=== PATIENT | female | born 1975 | race African-American/Black ===

== ENCOUNTER 2016-10-03 06:56 | Inpatient (IN) ==
[2016-10-03] MEDS ORDERED: ASPIRIN PO STA (07:03)
[2016-10-03] MEDS ORDERED: XYLOCAINE 2% VISCOUS MT ONE (07:08)
--- NOTE | 2016-10-03 07:33 | Diag Imaging Result Doc PS360 ---
EXAM: CHEST-PORTABLE HISTORY: seizure TECHNIQUE: Portable COMPARISON: 09/11/2016 FINDINGS: Interval development of dense infiltrates in the mid left lung. Heart is not enlarged. A heart valve has been replaced. No pleural effusions identified. IMPRESSION: Left-sided pneumonia. Follow-up PA and lateral recommended. Electronically signed by Yovanny Zimmer 10/03/2016 7:31 AM
[2016-10-03] MEDS ORDERED: VANCOMYCIN 1 GM/NS 1 GM/250 ML IVPB IV ONE (08:27)
[2016-10-03] MEDS ORDERED: ROCEPHIN 1 GM/NS 1 GM/50 ML IVPB IV ONE (08:27)
[2016-10-03 08:36] LABS: MANUAL DIFF NEEDED? NO
[2016-10-03 08:38] LABS: BASO% 0.2 % (0.0-0.8); EOS# 0.02 X1000 (0.0-0.7); EOS% 0.2 % (0.0-10.0); HEMATOCRIT 35.7 % (37.0-47.0); HEMOGLOBIN 11.5 g/dL (12.0-16.0); IMM GRAN# 0.01 X1000 (0.0-0.04); IMM GRAN% 0.1 % (0.0-0.5); LYMPH# 0.67 X1000 (1.2-3.4); LYMPH% 7.2 % (20.5-51.1); MCH 26.9 PG (27-31); MCHC 32.2 g/dL (33-37); MCV 83.4 FL (81-99); MONO% 8.6 % (1.7-9.3); MPV 11.1 FL (7.4-10.4); NEUT% 83.7 % (42.2-75.2); PLT 293 X1000 (130-400); RBC 4.28 XMIL (4.2-5.4)
[2016-10-03 08:50] LABS: INR 0.92 (0.86-1.15); PROTIME 13.1 Seconds (12.1-15.5)
[2016-10-03 08:51] LABS: PTT PL 28.9 Seconds (22.6-43.9)
[2016-10-03 08:53] LABS: AGAP 9; ALBUMIN 3.5 g/dL (3.5-5.0); ALKALINE PHOSPHATASE 119 U/L (32-104); BUN 6 mg/dL (8-22); CALCIUM 8.4 mg/dL (8.8-10.2); CHLORIDE 103 mmol/L (98-107); COSMO 270; GOT 41 U/L (10-30); GPT 34 U/L (10-36); MAGNESIUM 1.8 mg/dL (1.5-2.7); POTASSIUM 3.9 mmol/L (3.5-5.1); SODIUM 136 mmol/L (136-145); TCO2 25 mmol/L (25-35); TOTAL PROTEIN 6.8 g/dL (6.3-8.3)
[2016-10-03 08:59] LABS: UR AMPHETAMINES QUAL NONE DETECTED (NONE DETECT); UR BARBITUATES QUAL PRESUMPTIVE POSITIVE (NONE DETECT); UR BENZODIAZEPIN QUAL NONE DETECTED (NONE DETECT); UR CANNABINOIDS QUAL NONE DETECTED (NONE DETECT); UR COCAINE QUAL NONE DETECTED (NONE DETECT); UR MDMA QUAL NONE DETECTED (NONE DETECT); UR METHADONE QUAL NONE DETECTED (NONE DETECT); UR METHAMPHETAMINE QUAL NONE DETECTED (NONE DETECT); UR OPIATES QUAL NONE DETECTED (NONE DETECT); UR OXYCODONE QUAL NONE DETECTED (NONE DETECT); UR PCP QUAL NONE DETECTED (NONE DETECT); UR TCA QUAL NONE DETECTED (NONE DETECT)
[2016-10-03 09:08] LABS: CK PROFILE 185 U/L (24-173)
--- NOTE | 2016-10-03 09:25 | PROVIDER DOCUMENTATION ---
This chart was entered by Helga Soto Scribe, acting as scribe for Mike Gifford MD. HPI-Neurological Disorder - General Chief Complaint: Seizure Stated Complaint: POST SEIZURE Time Seen by Provider: 10/03/16 07:02 Source: patient Allergies/Adverse Reactions: Patient Allergies Allergy/AdvReac Type Severity Reaction Status Date / Time morphine Allergy RASH Verified 10/03/16 06:59 Home Medications: Home Medication List Medication Instructions Recorded Confirmed Last Taken Type Warfarin [Coumadin] 7.5 mg PO QHS 12/19/14 08/11/16 1 Day Ago History Clonazepam [Klonopin] 1 mg PO BID 08/14/15 08/11/16 04/05/16 History Hydrocodone Bit/Acetaminophen 1 each PO TID 08/14/15 08/11/16 04/05/16 History [Hydrocodon-Acetaminophn 10-325] Loratadine [Claritin] 10 mg PO DAILY #20 capsule 10/07/15 08/11/16 09/13/16 Rx Metoprolol [Lopressor] 25 mg PO DAILY #0 tablet 12/24/15 08/11/16 09/13/16 Rx Phenytoin [Dilantin] 200 mg PO QAM #150 capsule 12/24/15 08/11/16 09/13/16 Rx Phenytoin [Dilantin] 300 mg PO QHS #0 capsule 12/24/15 08/11/16 09/13/16 Rx Aspirin [Aspirin EC] 81 mg PO DAILY 04/05/16 08/11/16 04/05/16 History LISINOpril [Prinivil] 5 mg PO DAILY 04/05/16 08/11/16 04/05/16 History Gabapentin [Neurontin] 300 mg PO BID #60 capsule 07/24/16 08/11/16 Unknown Rx Clonazepam [Klonopin] 1 mg PO BID #30 tablet 08/11/16 Unknown Rx Warfarin [Coumadin] 7.5 mg PO QHS #30 tablet 08/11/16 Unknown Rx Clonazepam [Klonopin] 0.5 mg PO BID #10 tab.rapdis 09/11/16 Unknown Rx Nitrofurantoin Monohyd/M-Cryst 100 mg PO BID #20 capsule 09/11/16 09/13/16 Rx [Macrobid 100 mg Capsule] Cephalexin [Keflex] 500 mg PO 4XDAY #28 capsule 09/13/16 Unknown Rx Amoxicillin/Pot Clavulanate 875 mg PO Q12HR #14 tablet 09/15/16 Unknown Rx [Augmentin] - History of Present Illness-Neuro Nature of Presenting Problem: 41 Y/O F presents to ER by EMS with the complain of having seizure last night. pt state that she has hx of epilepsy and had 2 seizures last night. pt also complain of CARDENAS and mouth pain as she bit her tongue while having seizure. pt denies any other symptoms. Severity: reports: mild Onset/Duration: reports: last night Timing: reports: improving Character of Altered Mental Status: reports: N/A Any recent trauma/injury?: reports: none Cognitive Baseline: alert, oriented x3 Associated Symptoms: reports: headache, other (mouth pain) Review of Systems - Adult - REVIEW OF SYSTEMS - ADULT Constitutional: reports: no symptoms reported Eyes: reports: no symptoms reported Ears, Nose, Mouth & Throat: reports: mouth/dental pain (because of tongue bite) . denies: mouth swelling Cardiovascular: reports: no symptoms reported Respiratory: reports: no symptoms reported Gastrointestinal: reports: no symptoms reported Genitourinary: reports: no symptoms reported Musculoskeletal: reports: no symptoms reported Integumentary: reports: no symptoms reported Neurological: reports: headache/migraines, seizure Psychiatric: reports: no symptoms reported Endocrine: reports: no symptoms reported Hematologic/Lymphatic: reports: no symptoms reported Allergic/Immunologic: reports: no symptoms reported All Other Systems: Reviewed and Negative Past History - Adult - PAST MEDICAL HISTORY-ADULT Review of Records: reports: Old Records Reviewed, Nursing Assessment Review Major Childhood Illnesses: reports: denies history Cardiovascular: reports: blood clots, heart valve problem (both heart valves replaced) Respiratory: reports: asthma, COPD Gastrointestinal: reports: GERD, ulcer Obstetrical/Gynecological: reports: denies history Genitourinary: reports: denies history Musculoskeletal: reports: fibromyalgia Neurological: reports: Seizures/Epilepsy Endocrine/Immune: reports: denies history Other Conditions: reports: denies history - PRIOR SURGERIES/PROCEDURES Surgical/Procedure History: reports: EGD, colonoscopy, cholecystectomy, BTL, tonsillectomy, other (MVP replacement) - IMMUNIZATION STATUS Childhood Immunizations: See Nurse Assessment Flu Vaccine: See Nurse Assessment - FAMILY HISTORY Family History: reviewed, not pertinent - SOCIAL HISTORY Smoking: cigarettes Provider spent 3-5 mins advising pt. on dangers of tobacco.: Discussed manners to quit use, and f/u contacts for add'l counseling. Physical Exam- Neurological - Physical Exam-Neuro Initial Vital Signs Reviewed: Yes General Appearance: appears well, alert, thin Eye Exam: bilateral eye: normal inspection, PERRL, EOMI HENMT: moist mucous membranes, normal ENT inspection, other (mouth pain because of tongue bite) Head Injury: no evidence of injury. negative: active bleeding Neck: non-tender, full range of motion, supple Respiratory: chest non-tender, lungs clear Cardiovascular: tachycardia. negative: no edema Abdominal Exam: normal bowel sounds, non tender, soft Extremity: non-tender, normal inspection patient admitting clerk Exam: normal hearing, normal speech Neurologic: patient admitting clerk II-XII nml as tested, grossly normal, no motor/sensory deficits Integumentary: normal color, normal turgor, warm/dry Psych/Mental Status: normal mood/affect, oriented x 3 Progress - PLAN OF CARE/RESULTS Progress/Plan/Lab Results: Vital Signs - 8 hr 10/03/16 06:57 Temperature 98.4 F Pulse Rate 96 H Respiratory Rate 20 Blood Pressure 109/71 O2 Sat by Pulse Oximetry 95 Laboratory Results - last 24 hr 10/03/16 10/03/16 10/03/16 08:27 08:27 08:27 WBC RBC Hgb Hct MCV MCH MCHC RDW Std Deviation Plt Count MPV Immature Gran % (Auto) Neut % (Auto) Lymph % (Auto) [place] % (Auto) Eos % (Auto) Baso % (Auto) Immature Gran # (Auto) Neut # (Auto) Lymph # (Auto) [place] # (Auto) Eos # (Auto) Baso # (Auto) PT INR APTT (Factor Assay) Sodium 136 Potassium 3.9 Chloride 103 Carbon Dioxide 25 Anion Gap 9 BUN 6 L Creatinine 0.5 Estimated GFR/1.73 m2 > 60 BUN/Creatinine Ratio 12 Glucose 106 H Calculated Osmolality 270 Calcium 8.4 L Magnesium 1.8 Total Bilirubin 0.30 AST 41 H ALT 34 Alkaline Phosphatase 119 H Creatine Kinase 185 H Troponin T < 0.010 Irx-F-[id number] Pept 619 H Total Protein 6.8 Albumin 3.5 Globulin 3.0 Albumin/Globulin Ratio 1.0 Urine Opiates Screen Ur Oxycodone Screen Urine Methadone Screen Ur Barbituates Screen Ur Tricyclics Screen Ur Phencyclidine Scrn Ur Amphetamines Screen U Methamphetamines Scrn Urine MDMA Screen U Benzodiazepines Scrn Urine Cocaine Screen U Cannabinoids Screen 10/03/16 10/03/16 10/03/16 08:27 08:27 08:44 WBC 9.31 RBC 4.28 Hgb 11.5 L Hct 35.7 L MCV 83.4 MCH 26.9 L MCHC 32.2 L RDW Std Deviation 18.4 H Plt Count 293 MPV 11.1 H Immature Gran % (Auto) 0.1 Neut % (Auto) 83.7 H Lymph % (Auto) 7.2 L [place] % (Auto) 8.6 Eos % (Auto) 0.2 Baso % (Auto) 0.2 Immature Gran # (Auto) 0.01 Neut # (Auto) 7.79 H Lymph # (Auto) 0.67 L [place] # (Auto) 0.80 H Eos # (Auto) 0.02 Baso # (Auto) 0.02 PT 13.1 INR 0.92 APTT (Factor Assay) 28.9 Sodium Potassium Chloride Carbon Dioxide Anion Gap BUN Creatinine Estimated GFR/1.73 m2 BUN/Creatinine Ratio Glucose Calculated Osmolality Calcium Magnesium Total Bilirubin AST ALT Alkaline Phosphatase Creatine Kinase Troponin T [id number]-[id number] Pept Total Protein Albumin Globulin Albumin/Globulin Ratio Urine Opiates Screen NONE DETECTED Ur Oxycodone Screen NONE DETECTED Urine Methadone Screen NONE DETECTED Ur Barbituates Screen PRESUMPTIVE POSITIVE A Ur Tricyclics Screen NONE DETECTED Ur Phencyclidine Scrn NONE DETECTED Ur Amphetamines Screen NONE DETECTED U Methamphetamines Scrn NONE DETECTED Urine MDMA Screen NONE DETECTED U Benzodiazepines Scrn NONE DETECTED Urine Cocaine Screen NONE DETECTED U Cannabinoids Screen NONE DETECTED Orders Category Date Time Status Cardiac Monitoring DIRECTED Care 10/03/16 07:03 Active Oxygen Therapy- ED Nursing DIRECTED Care 10/03/16 07:03 Active Saline Loc NOW Care 10/03/16 07:03 Active CHEST-PORTABLE [RAD] Stat Exams 10/03/16 07:04 Completed BLOOD CULTURE [BLDCUL] Stat Lab 10/03/16 08:27 Ordered CBC WITH ELECTRONIC DIFF [HEME] Stat Lab 10/03/16 08:27 Completed CK PROFILE [SP CHEM] Stat Lab 10/03/16 08:27 Results COMPREHENSIVE METABOLIC PANEL [CHEM] Stat Lab 10/03/16 08:27 Results MAGNESIUM [CHEM] Stat Lab 10/03/16 08:27 Results PRO B-NATRIURETIC PEPTIDE Stat Lab 10/03/16 08:27 Completed [address]IME WITH INR PL [COAG] Stat Lab 10/03/16 08:[address] [COAG] Stat Lab 10/03/16 08:27 Completed TROPONIN T Stat Lab 10/03/16 08:27 Completed URINE DRUG SCREEN PL Stat Lab 10/03/16 08:44 Completed Aspirin Med 10/03/16 07:03 Discontinued 325 mg PO STAT STA CefTRIAXONE 1 GM/NS [Rocephin 1 gm/Ns] Med 10/03/16 08:27 Discontinued 1 gm in 50 ml IV NOW Lidocaine 2% Viscous [Xylocaine 2% Viscous] Med 10/03/16 07:08 Discontinued 15 ml MT NOW ONE Vancomycin 1 gm/Ns Med 10/03/16 08:27 Active 1 gm in 250 ml IV NOW EKG [EKG] Stat Ther 10/03/16 07:03 Ordered Result Diagrams: 10/03/16 08:27 10/03/16 08:27 - EKG 1 Time of EKG reading by physician:: 08:45 EKG Read and Signed by:: Mike iGfford EKG Interpretation (*Must complete 3 of following elements*): Abnormal Rate: 88 Rhythm: Normal Sinus Rhythm Comments: Abnormal ECG - XRAY 1 XRAY: Bilateral XRAY Study: Chest Impression: See EMR Report XRAY Interpretation: L side Pneumonia,Followup- PA and lateral recommeded by radiologist - CONSULTS/PCP/HOSPITALIST Notification #1 *Consult/PCP/Hospitalist*: Dr. Lino Time Discussed: 09:16 Reason/Comments: discussed about pt Consult Disposition: Admit Departure - Departure Date of Disposition Decision: 10/03/16 Time of Disposition Decision: 09:24 DIAGNOSIS: Seizure disorder, Pneumonia Disposition: ADMITTED INPATIENT 09 Certified Medical Emergency: Emergent Condition: Stable Referrals and Follow-Ups: Je Matos MD [Primary Care Provider] - - Critical Care Note This patient required my direct & personal management of CC.: Yes Total Time (mins): 20 Critical Care Statement: This patient required my direct personal management to treat or rule out processes, the absence of which, could potentiallly result in sudden, clinically significant life or limb threatening deterioration. Attestation - Physician/ SAFIA Attestation The physician spent face to face time with patient:: Yes Advanced Practice Provider documentation review:: The physician spent face to face time with this patient and agrees with all MLP documentation, treatment, and medical decision making by the MLP. See provider notes for further information. This chart was documented by the indicated scribe, (Helga Soto Scribe) and accurately reflects the services I performed and decisions made by , Mike Gifford MD, as attested by the provider's signature.
[2016-10-03 09:38] LABS: CK INDEX 1.8 (0.0-2.5); CK-MB 3.33 ng/mL (0.0-5.0)
[2016-10-03] MEDS ORDERED: NS 1,000 ML IV SCH (09:40)
[2016-10-03] MEDS ORDERED: TYLENOL PO PRN (09:40)
[2016-10-03] MEDS ORDERED: ZOFRAN IV PRN (09:40)
--- NOTE | 2016-10-03 09:41 | EKG Report ---
Test Performed on : 10/03/2016 08:45:40 AM Test Reason : Chest Pain Blood Pressure : / mmHG Vent. Rate : 088 BPM Atrial Rate : 088 BPM P-R Int : 132 ms QRS Dur : 080 ms QT Int : 366 ms P-R-T Axes : 075 067 072 degrees QTc Int : 442 ms Normal sinus rhythm. Biatrial enlargement Abnormal ECG When compared with ECG of 11-SEP-2016 11:26, No significant change was found Unconfirmed Result
--- NOTE | 2016-10-03 10:42 | HISTORY AND PHYSICAL ---
CHIEF COMPLAINT: Seizure disorder. HISTORY OF PRESENT ILLNESS: A 41-year-old, female with a past medical history of heart failure, mechanical mitral valve replacement in 2014, questionable tricuspid valve repair, severe aortic regurgitation and moderate to severe tricuspid regurgitation, seizure disorder, depression, GERD. Apparently she was admitted also on 09/02/2015 with intentional drug overdose, tobacco abuse, possible COPD, atrial fibrillation, questionable rheumatoid arthritis, peptic ulcer disease and Crohn disease. She came into the emergency department with a chief complaint of seizures. She is completely alert and oriented x3. As per the patient she also has been having cough and diarrhea. Apparently more than more than 1 week ago she started having runny nose and flu-like symptoms. She started coughing 1 week ago with no phlegm, dry cough. Then, she started having diarrhea 3-4 days ago. Although symptoms are getting worse and yesterday night she had a seizure disorder, as well as this morning, this is why they decided to come to the emergency department for evaluation. At the emergency department, she was found to have a left side pneumonia. Because of the seizure disorder and pneumonia and diarrhea, I will place this patient in the ICU for at least 1 day for close monitoring. I will ask for a Dilantin level. I will put this patient on gentle fluids. I will continue most of her home medications. I will ask for blood culture and urine culture. Also, sputum culture if we are able to get some. REVIEW OF SYSTEMS: The 14 points of review of systems were reviewed. All of them were negative, except as per HPI. PAST MEDICAL HISTORY: Severe aortic regurgitation, history of COPD, atrial fibrillation, seizure disorder, rheumatoid arthritis, peptic ulcer disease, Crohn disease, mitral valve replacement, possible tricuspid valve repair, moderate tricuspid regurgitation, heart failure, peptic ulcer disease and Crohn disease. PAST SURGICAL HISTORY: Tubal ligation, mitral valve replacement. FAMILY HISTORY: Several first-degree relatives with heart disease, diabetes and thyroid cancer. SOCIAL HISTORY: No alcohol, no drugs. She denies smoking at this time. LABORATORY: WBC 9.3, hemoglobin 11.5, hematocrit 35.7, platelets 293. Sodium 136, potassium 3.9, chloride 103, bicarbonate 25. BUN 6, creatinine 0.5, glucose 106, calcium 8.4, alkaline phosphatase 119. ProBNP 619. ASSESSMENT AND PLAN: 1. Seizure disorder. Apparently this patient had 2 episodes of seizure disorder, one last night and one today in the morning. She bit her tongue. I will continue with home medication. I will put as-needed medication in case of a new seizure. I will ask for a Dilantin level and I will monitor this patient in the ICU. 2. Pneumonia. I will place this patient on vancomycin and Zosyn. I already asked for sputum culture, urine culture and blood culture for this patient. Also will put this patient on breathing treatment. 3. Diarrhea. I will hydrate this patient with gentle fluids around 50 mL/hour given her history of congestive heart failure. Apparently she has been also on antibiotics before, so I will ask for Clostridium difficile toxin and antigen to rule out Clostridium difficile colitis. 4. Gastroesophageal reflux disease. I will continue with sucralfate and I will put this patient on proton pump inhibitors. 5. Hypertension. Continue with her blood pressure medication. 6. Heart failure. Continue with metoprolol. Will monitor. 7. History of aortic valve regurgitation which is severe. We will continue with metoprolol and lisinopril. We will monitor this closely. 8. History of atrial fibrillation with mitral valve replacement. This patient's INR is subtherapeutic, so I will put this patient on Lovenox twice a day and I will restart this patient's warfarin. Apparently she ran out of warfarin a few days ago. 9. History of peptic ulcer disease. As I mentioned before, I put this patient on proton pump inhibitors and sucralfate. cc: Atilio Urias MD
[2016-10-03] MEDS ORDERED: VANCOMYCIN IV PER PHARMACY MISC SCH (11:34)
[2016-10-03] MEDS ORDERED: ATIVAN IV PRN (11:34)
[2016-10-03] MEDS ORDERED: VANCOMYCIN 800 MG in NS 250 ML IV ONE (12:30)
[2016-10-03 12:36] LABS: URINE SOURCE CLEAN CATCH
[2016-10-03 12:38] LABS: BILIRUBIN URINE NEGATIVE (NEGATIVE); BLOOD URINE 2+ (NEGATIVE); CLARITY CLEAR (CLEAR); COLOR YELLOW; GLUCOSE URINE NEGATIVE (NEGATIVE); LEUKOCYTES URINE NEGATIVE (NEGATIVE); NITRITE URINE NEGATIVE (NEGATIVE); PH URINE 6.5; PROTEIN URINE NEGATIVE (NEGATIVE); URINE MICROSCOPIC NEEDED? YES; UROBILINOGEN URINE NORMAL
[2016-10-03] MEDS ORDERED: NORCO-10 PO SCH (13:00)
[2016-10-03] MEDS: NS 1,000 ML IV SCH (13:03)
[2016-10-03] MEDS: CARAFATE LIQUID PO SCH ×2 (13:03→19:47)
[2016-10-03] MEDS: LOVENOX SUBQ SCH ×2 (13:04→22:00)
[2016-10-03] MEDS: ZOSYN 3.375 GM/NS 3.375 GM/50 ML IVPB IV SCH ×2 (13:05→19:05)
[2016-10-03] MEDS: LOPRESSOR PO SCH (13:06)
[2016-10-03 13:12] LABS: URINE CAST NONE SEEN /LPF; URINE CRYSTAL NONE SEEN /HPF; URINE EPITHELIAL CELLS <10 /HPF (<10); URINE RBC <10 /HPF (<10); URINE WBC <10 /HPF (<10)
[2016-10-03] MEDS: XYLOCAINE 2% VISCOUS MT PRN (19:50)
[2016-10-03] MEDS: NEURONTIN PO SCH (20:29)
[2016-10-03] MEDS: DILANTIN PO SCH (20:30)
[2016-10-03] MEDS: NORCO-10 PO SCH (20:31)
[2016-10-03] MEDS: KLONOPIN PO SCH (20:32)
[2016-10-03] MEDS ORDERED: COUMADIN PO SCH (21:00)
[2016-10-03] MEDS: TESSALON PO PRN (22:30)
[2016-10-03] MEDS ORDERED: VANCOMYCIN 1,350 MG in NS 250 ML IV SCH (23:00)
[2016-10-04] MEDS: ZOSYN 3.375 GM/NS 3.375 GM/50 ML IVPB IV SCH ×5 (00:19→22:56)
[2016-10-04] MEDS: CARAFATE LIQUID PO SCH ×4 (04:14→20:42)
[2016-10-04] MEDS: NS 1,000 ML IV SCH ×2 (05:00→22:57)
[2016-10-04] MEDS: NORCO-10 PO SCH ×3 (05:50→20:42)
[2016-10-04 06:06] LABS: MANUAL DIFF NEEDED? NO
[2016-10-04 06:20] LABS: BASO% 0.7 % (0.0-0.8); EOS# 0.31 X1000 (0.0-0.7); EOS% 5.4 % (0.0-10.0); HEMATOCRIT 30.9 % (37.0-47.0); HEMOGLOBIN 9.4 g/dL (12.0-16.0); LYMPH# 1.34 X1000 (1.2-3.4); LYMPH% 23.1 % (20.5-51.1); MCH 26.1 PG (27-31); MCHC 30.4 g/dL (33-37); MCV 85.8 FL (81-99); MONO# 0.61 X1000 (0.11-0.59); MONO% 10.5 % (1.7-9.3); MPV 11.3 FL (7.4-10.4); NEUT% 60.3 % (42.2-75.2); PLT 261 X1000 (130-400)
[2016-10-04 06:24] LABS: AGAP 10; ALKALINE PHOSPHATASE 100 U/L (32-104); BUN 6 mg/dL (8-22); CALCIUM 7.7 mg/dL (8.8-10.2); CHLORIDE 104 mmol/L (98-107); COSMO 272; GOT 29 U/L (10-30); GPT 24 U/L (10-36); POTASSIUM 3.5 mmol/L (3.5-5.1); SODIUM 138 mmol/L (136-145); TCO2 24 mmol/L (25-35); TOTAL PROTEIN 5.8 g/dL (6.3-8.3)
[2016-10-04] MEDS: NEXIUM PO SCH (06:30)
[2016-10-04 06:36] LABS: INR 1.1 (0.86-1.15); PROTIME 15.1 Seconds (12.1-15.5)
--- NOTE | 2016-10-04 08:07 | Diag Imaging Result Doc PS360 ---
CHEST-PORTABLE - 10/04/2016 INDICATION: Pneumonia TECHNIQUE: COMPARISON: 10/03/2016 FINDINGS: There has been significant improvement, with near resolution, of the hazy left midlung infiltrate. Stable sternotomy wires and valve replacement. Heart size remains top normal. Pulmonary vascularity is normal. No pneumothorax or large effusion. IMPRESSION: Near complete resolution of the left midlung infiltrate. More likely to have represented edema than pneumonia. Electronically signed by Paul Palacio 10/04/2016 8:04 AM
[2016-10-04] MEDS ORDERED: MBX SOLUTION MT PRN (08:30)
[2016-10-04] MEDS: DILANTIN PO SCH ×2 (08:40→20:42)
[2016-10-04] MEDS: NEURONTIN PO SCH ×2 (08:41→20:43)
[2016-10-04] MEDS: PRINIVIL PO SCH (08:41)
[2016-10-04] MEDS: ASPIRIN EC PO SCH (08:41)
[2016-10-04] MEDS: KLONOPIN PO SCH ×2 (08:41→20:44)
--- NOTE | 2016-10-04 08:57 | PROGRESS NOTE ---
DATE: 10/04/2016 SUBJECTIVE: Patient without any new complaints states that she is feeling okay, had a bad night. States she is hurting all over, but this is not uncommon. OBJECTIVE: Vital Signs: Reviewed. Temperature 98 degrees, pulse 88, respiratory rate 18, BP 81/41 and 96/52, satting 96% to 100% on room air. General: Patient is awake, alert, currently in no real respiratory distress. She is somnolent, but arousable. HEENT: Normocephalic, atraumatic. MADELAINE. Neck: Supple. CV: Regular rate. Chest: Clear. Abdomen: Soft. Extremities: Moves all extremities. ASSESSMENT: 1. Seizure disorder. Patient had 2 seizures yesterday. Dilantin level was still pending. If this is low, certainly will need to increase her Dilantin. 2. Pneumonia. We will continue Zosyn. Will actually stop her vancomycin as noted below. 3. Hypotension. Apparently vancomycin in 10% of population can actually lower your blood pressure. The patient was on lisinopril and Toprol at home; we will certainly hold both of these with blood pressures being 80-90 systolic. We will stop her vancomycin as this certainly could be the cause of her hypotension as he her blood pressure was noted to drop very quickly after the staff gave her vancomycin. 4. Hypotension. As noted, we will continue to hold. 5. Anticoagulation. Patient's INR was low. Certainly would suggest that she has not been taking either Coumadin or Dilantin at home. We will continue to follow. 6. Heart failure. Patient has a known history of congestive heart failure. 7. Aortic valve regurgitation, severe. She is on metoprolol and lisinopril, but will hold this. 8. Atrial fibrillation. We will continue Lovenox until her INR is greater than 2. PLAN: Currently we will leave her in the ICU until her blood pressures have improved. We will attempt to hold [place] and Klonopin, as well, until her blood pressures improve. We will stop her vancomycin presently. Continue Zosyn. Further orders as needed. cc: Hamzah Santiago MD
[2016-10-04] MEDS: LOVENOX SUBQ SCH ×2 (10:52→22:56)
[2016-10-04] MEDS: COUMADIN PO SCH (20:44)
[2016-10-04] MEDS: TESSALON PO PRN (22:56)
[2016-10-05] MEDS: CARAFATE LIQUID PO SCH ×4 (02:28→19:58)
[2016-10-05] MEDS: NS 1,000 ML IV SCH (03:25)
[2016-10-05] MEDS: ZOSYN 3.375 GM/NS 3.375 GM/50 ML IVPB IV SCH (05:22)
[2016-10-05] MEDS: NORCO-10 PO SCH ×3 (05:22→19:59)
[2016-10-05] MEDS: NEXIUM PO SCH (06:59)
[2016-10-05] MEDS: ASPIRIN EC PO SCH (09:46)
[2016-10-05] MEDS: PRINIVIL PO SCH (09:47)
[2016-10-05] MEDS: KLONOPIN PO SCH ×2 (09:47→20:02)
[2016-10-05] MEDS: DILANTIN PO SCH ×2 (09:47→20:02)
[2016-10-05] MEDS: LOPRESSOR PO SCH (09:47)
[2016-10-05] MEDS: AUGMENTIN PO SCH ×2 (09:47→20:02)
[2016-10-05] MEDS: NEURONTIN PO SCH ×2 (09:47→19:59)
[2016-10-05] MEDS: LOVENOX SUBQ SCH ×2 (09:48→21:07)
[2016-10-05] MEDS ORDERED: ATIVAN PO PRN (18:47)
[2016-10-05] MEDS ORDERED: ZOFRAN ODT PO PRN (18:47)
[2016-10-05] MEDS: COUMADIN PO SCH (19:59)
[2016-10-05] MEDS: XYLOCAINE 2% VISCOUS MT PRN (20:10)
[2016-10-06] MEDS: CARAFATE LIQUID PO SCH ×4 (02:49→20:07)
[2016-10-06] MEDS: NORCO-10 PO SCH ×3 (06:15→20:09)
[2016-10-06] MEDS: NEXIUM PO SCH (06:19)
[2016-10-06 07:01] LABS: INR 1.95 (0.86-1.15); PROTIME 23.8 Seconds (12.1-15.5)
[2016-10-06] MEDS: LOPRESSOR PO SCH (09:11)
[2016-10-06] MEDS: KLONOPIN PO SCH ×2 (09:11→20:08)
[2016-10-06] MEDS: LOVENOX SUBQ SCH ×2 (09:11→21:08)
[2016-10-06] MEDS: NEURONTIN PO SCH ×2 (09:11→20:08)
[2016-10-06] MEDS: PRINIVIL PO SCH (09:11)
[2016-10-06] MEDS: ASPIRIN EC PO SCH (09:11)
[2016-10-06] MEDS: DILANTIN PO SCH ×2 (09:11→20:07)
[2016-10-06] MEDS: AUGMENTIN PO SCH ×2 (09:12→20:09)
--- NOTE | 2016-10-06 11:55 | PROGRESS NOTE ---
DATE: 10/06/2016 SUBJECTIVE: Today Ms. Romero refers to be doing fine. Denies any acute medical complaints. Denies wanting to hurt herself this morning. OBJECTIVE: Vital signs: Blood pressure is 112/63, pulse of 87, respiration is 18, and temperature 98.4 degrees. General: Ms. Romero is a 41-year-old female. She is in bed. Does not seem to be in any distress. HEENT: Mucosa is pink and moist. Anicteric. Acyanotic. The patient has very hyperplastic and hyperpigmented gums due to Dilantin side effects. Chest: Clear. No crepitations. No rhonchi. Cardiovascular: Regular rate and rhythm. There is a mechanical click consistent with a mechanical valve. Abdomen: Soft, nontender. Extremities: No pedal edema. Skin: On the chest wall the patient has a midline sternotomy scar consistent with previous heart surgeries. 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 There is no focal neurological deficit. LABORATORY DATA: None for today. ASSESSMENT: 1. Seizure disorder. Patient seems to have breakthrough seizures. According to her, she normally has at least 1 breakthrough seizure every month. She normally sees Dr. Santana. The patient's Dilantin levels are low. However, she refers to be consistent with her medication which is kind of doubtful. Either she is not taking them or it is being induced in its metabolism due to other medication. We will, however, defer this to her neurologist to make changes accordingly. The patient has not had any seizures today. 2. Remarkable history of valvulopathy (mitral valve replaced with mechanical valves, aortic valve replaced with mechanical valve, tricuspid valve repair; all presumably due to rheumatic heart disease). 3. Coumadin anticoagulation patient is subtherapeutic. Is currently on home dose of Coumadin and being bridged with Lovenox. According to her, she stopped taking Coumadin about a month ago because she just got tired. 4. History of atrial fibrillation. Currently rate controlled. 5. Suspected pneumonia. Patient is currently on antibiotics. 6. History of tobacco abuse. Patient has been counseled. 7. Suicidal ideation. This patient has been evaluated by psych and we are pending inpatient psych placement. cc: Burton Her MD
--- NOTE | 2016-10-06 13:26 | PROGRESS NOTE ---
DATE: 10/05/2016 SUBJECTIVE: The patient initially stated that she wanted to go home. States that she was feeling better. Therefore, we were attempting to get Lovenox at home. However, later on in the day she told the nurse that she had plenty of Lovenox and Coumadin at home, but stated that she was not going to take it. Stated that if she went home, that she would attempt to hurt herself and would hopefully be successful. OBJECTIVE: Vital Signs: Reviewed and stable. She is awake, alert, oriented. She is in no respiratory distress. Neck: Supple. CV: Regular rate. Chest: Relatively clear. Abdomen: Soft. Extremities: Moves all extremities. ASSESSMENT: 1. Seizure disorder. We will continue Dilantin. 2. Pneumonia. Continue antibiotics. 3. Hypotension, resolved. 4. Anticoagulation. Patient's INR remains low. We will continue Lovenox and Coumadin. 5. Suicidal ideations. Patient will consult with Cathy Reynolds. We will move her back to the intensive care unit secondary to suicidal ideations. 6. Aortic valve regurgitation. 7. Atrial fibrillation. PLAN: We will consult Plumaserlinda Covarrubias [place]. We will move her back to ICU. We will continue to follow. Further orders as needed. cc: Hamzah Santiago MD
[2016-10-06] MEDS: TESSALON PO PRN (16:25)
[2016-10-06] MEDS: COUMADIN PO SCH (20:09)
[2016-10-07] MEDS: CARAFATE LIQUID PO SCH ×3 (02:08→13:29)
[2016-10-07] MEDS: NORCO-10 PO SCH ×2 (06:11→12:37)
[2016-10-07] MEDS: NEXIUM PO SCH (06:15)
[2016-10-07] MEDS: LOPRESSOR PO SCH (09:12)
[2016-10-07] MEDS: LOVENOX SUBQ SCH (09:12)
[2016-10-07] MEDS: PRINIVIL PO SCH (09:12)
[2016-10-07] MEDS: NEURONTIN PO SCH (09:12)
[2016-10-07] MEDS: DILANTIN PO SCH (09:12)
[2016-10-07] MEDS: AUGMENTIN PO SCH (09:12)
[2016-10-07] MEDS: KLONOPIN PO SCH (09:12)
[2016-10-07] MEDS: ASPIRIN EC PO SCH (09:13)
[2016-10-07] MEDS ORDERED: NICODERM PATCH ONE (12:05)
[2016-10-07] MEDS ORDERED: REMERON PO SCH (12:15)
[2016-10-07] MEDS ORDERED: DIFLUCAN PO SCH (12:45)
[2016-10-07] MEDS ORDERED: NICODERM PATCH TD SCH (12:45)
[2016-10-07 13:50] VITALS: BP 153/82
--- NOTE | 2016-10-07 15:28 | PROGRESS NOTE ---
DATE: 10/07/2016 SUBJECTIVE: Today Ms. 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 She is thinking about her kids. She has not been eating very well. She also complained of some vaginal itching. OBJECTIVE: Vital signs: Blood pressure is 112/68, pulse of 62, respirations 23, temperature is 97.8 degrees. The patient is saturating 98% on room air. General: Ms. Romero is a 41-year-old, female. She was sitting up in the bed. Was not in any distress, but was just tearful. HEENT: Mucosa is pink and moist. Anicteric. Acyanotic. Neck: Supple. Chest: Good air entry bilateral. Cardiovascular: Regular rate and rhythm. There is a systolic click consistent with a history of a mechanical valve. Abdomen: Soft, nontender. Extremities: No pedal edema. [employer]: Patient is awake and alert. There is no focal neurological deficit. Chest wall: Patient has a midline sternotomy scar consistent with previous heart surgeries. LABORATORY: No laboratory work for today. ASSESSMENT: 1. Seizure disorder with frequent breakthrough seizures. Patient has not had any seizures here. She normally follows up with Dr. Santana. The patient has been started on her home medications and will follow up with Dr. Santana. 2. Remarkable history of valvulopathy (mechanical mitral valve replaced, aortic mechanical valve replaced and tricuspid valve repair) all secondary to rheumatic heart disease. 3. Coumadin anticoagulation. Patient continues to be subtherapeutic; however, INR is improving, today is 1.95. Hopefully tomorrow it is in the therapeutic range and we can discontinue the Lovenox. 4. History of atrial fibrillation, currently rate controlled. 5. Suspected pneumonia. The patient is on oral antibiotics now. 6. History of tobacco abuse. Patient has been counseled. 7. Suicidal ideation. Patient continues to express even after this morning that she would hurt herself. This patient has been evaluated by Cathy Reynolds and they recommend an inpatient psychiatric bed. We are still pending bed availability in any of the psychiatric facilities. 8. Severe depression. Patient continues to be very tearful, not eating, and refers she does not have any hopes in life. We are going to start her on Lexapro and mirtazapine and hopefully this will help over the course of the day with her symptoms and her mood. 9. Suspected candidal vaginitis. PLAN: 1. So in general Ms. Romero is relatively stable. However, today she was more tearful than day before. We will start her on Lexapro and mirtazapine and we will also start her on a 3-day course of Diflucan for presumed [place] vaginitis. 2. We are still waiting on an inpatient psychiatric bed for patient to be transferred. 3. Patient after this morning continues to express suicidal ideations. cc: Burton Her MD
--- NOTE | 2016-10-07 15:30 | DISCHARGE SUMMARY ---
ADMISSION DATE: 10/03/2016 DISCHARGE DATE: 10/07/2016 DISPOSITION: [facility] ADMITTING DIAGNOSES: 1. Seizure disorder. 2. Pneumonia. 3. Diarrhea. 4. Gastroesophageal reflux disease. DISCHARGE DIAGNOSES: 1. Seizure disorder with frequent breakthrough episodes. 2. Remarkable history of valvulopathy (mechanical mitral valve replaced, mechanical aortic valve replaced, tricuspid valve repair, all presumably due to rheumatic heart disease). 3. Coumadin anticoagulation. 4. History of atrial fibrillation. 5. Suspected pneumonia. 6. Tobacco abuse. 7. Suicidal ideation. 8. Significant evidence of depression. MEDICATIONS: At the time of transfer, the patient was on: 1. Tylenol. 2. Augmentin 500 b.i.d. 3. Aspirin 81 mg daily. 4. Klonopin 1 mg daily. 5. Lovenox 60 subcutaneously q.12. 6. Lexapro 20 mg nightly at bedtime. 7. Nexium. 8. Diflucan 100 mg daily. 9. Gabapentin 300 b.i.d. 10.Lisinopril 5 mg daily. 11.Metoprolol 50 mg daily. 12.Mirtazapine 15 mg nightly at bedtime. 13.Nicotine patch. 14.Phenytoin 200 mg in the morning and 300 mg at night. 15.Coumadin 15 mg daily. PRESENTING COMPLAINT: Seizures. HISTORY OF PRESENT ILLNESS: Ms. Romero is a 41-year-old female with extensive history of valvulopathy, heart failure, multiple valvular surgeries, who presented to the emergency department because of seizure episode. The patient was admitted for further medical evaluation. HOSPITAL COURSE: The patient was admitted to the ICU, was started on IV Dilantin. Dilantin level was low. From the history, it appeared Ms. Romero was not very compliant with her medications. During the hospital stay, the patient did express very active suicidal ideation, so Cathy Reynolds was consulted, and the decision was made to admit the patient to an inpatient psychiatric green. Referrals were sent all over today. [facility] called and said they have a bed. The patient will therefore be transferred there for further medical care. At the time of discharge, there are no pending labs or imaging studies. Time spent for discharge was 38 minutes. cc: Burton Her MD
[2016-10-07] MEDS ORDERED: LEXAPRO PO SCH (21:00)
[2016-10-08] MEDS ORDERED: MIRALAX PO SCH (09:00)
== END 2016-10-07 14:34 ==
LOC: P.ED 06:56 → SUATTDRO 09:55 → P.ICU 09:55 → P.MEDSURG 10-04 18:40 → P.ICU 10-05 15:45
PROVIDERS: ATTEND Internal Medicine

== ENCOUNTER 2018-03-16 05:07 | Inpatient (IN) ==
[2018-03-16] MEDS ORDERED: PROTONIX IV ONE (05:28)
[2018-03-16] MEDS ORDERED: SODIUM CHLORIDE 0.9% INJ ONE ×2 (05:28→11:32)
[2018-03-16] MEDS ORDERED: ZOFRAN IV ONE (05:36)
--- NOTE | 2018-03-16 05:36 | PROVIDER DOCUMENTATION ---
HPI-General Adult - General Chief Complaint: Vomiting Blood Stated Complaint: VOMITING Time Seen by Provider: 03/16/18 05:27 Source: patient, family Allergies/Adverse Reactions: Patient Allergies Allergy/AdvReac Type Severity Reaction Status Date / Time morphine Allergy RASH Verified 01/11/18 08:55 Home Medications: Home Medication List Medication Instructions Recorded Confirmed Last Taken Type Clonazepam [Klonopin] 1 mg PO BID #30 tablet 08/11/16 03/16/18 03/15/18 21:00 Rx Hydrocodone Bit/Acetaminophen 1 each PO TID #30 tablet 10/05/16 03/16/18 21:00 Rx [Hydrocodon-Acetaminophn 10-325] Metoprolol [Lopressor] 25 mg PO DAILY #30 tablet 10/05/16 03/16/18 03/15/18 09: 00 Rx Phenytoin [Dilantin] 200 mg PO QAM #30 capsule 10/05/16 03/16/18 03/15/18 Rx Phenytoin [Dilantin] 300 mg PO QHS #30 capsule 10/05/16 03/16/18 03/15/18 Rx Warfarin [Coumadin] 7.5 mg PO QHS 03/16/18 03/16/18 03/15/18 09:00 History - History of Present Illness -Gen Adult Nature of Presenting Problems: Patient is a 42 year old black female with history of mechanical mitral valve replacement requiring daily coumadin,COPD,fibromyalgia, seizure disorder, and atrial fibrillation who presents complaining of intermittent coffee ground emesis and rectal bleeding since yesterday. Upon arrival, rectal exam revealed hemoccult brown stools and no sign of bleeding. Review of Systems - Adult - REVIEW OF SYSTEMS - ADULT Constitutional: denies: chills, fever Eyes: reports: no symptoms reported Ears, Nose, Mouth & Throat: reports: no symptoms reported Cardiovascular: denies: chest pain Respiratory: denies: shortness of breath Gastrointestinal: reports: abdominal pain, diarrhea, nausea, vomiting Genitourinary: denies: dysuria Musculoskeletal: reports: no symptoms reported Integumentary: reports: no symptoms reported Neurological: reports: no symptoms reported Psychiatric: reports: anxiety Endocrine: reports: no symptoms reported Hematologic/Lymphatic: reports: no symptoms reported Allergic/Immunologic: reports: no symptoms reported All Other Systems: Reviewed and Negative Past History - Adult - PAST MEDICAL HISTORY-ADULT Review of Records: reports: Old Records Reviewed, Nursing Assessment Review, Medications Reviewed, Social history reviewed & non-contributory. Major Childhood Illnesses: reports: denies history Cardiovascular: reports: A-Fib, blood clots, CHF, HTN, heart valve problem ( both heart valves replaced) Respiratory: reports: asthma, COPD Gastrointestinal: reports: GERD, ulcer Obstetrical/Gynecological: reports: denies history Genitourinary: reports: denies history Musculoskeletal: reports: fibromyalgia Neurological: reports: Seizures/Epilepsy Psychiatric: reports: denies history Endocrine/Immune: reports: denies history Other Conditions: reports: denies history - PRIOR SURGERIES/PROCEDURES Surgical/Procedure History: reports: EGD, colonoscopy, cholecystectomy, BTL, tonsillectomy, other (MVP replacement) - IMMUNIZATION STATUS Childhood Immunizations: See Nurse Assessment Flu Vaccine: See Nurse Assessment - FAMILY HISTORY Family History: reviewed, not pertinent Physical Exam-General - PHYSICAL EXAM-ADULT Initial Vital Signs Reviewed: Yes - CONSTITUTIONAL General Appearance: alert, no apparent distress - EYES Eyes: other (clear) - HEAD, EARS, NOSE, MOUTH & THROAT HENMT: moist mucous membranes, normal ENT inspection - NECK Neck: non-tender, full range of motion, supple - RESPIRATORY Respiratory: lungs clear - CARDIOVASCULAR Cardiovascular: regular rate, rhythm - GASTROINTESTINAL (ABDOMEN) Abdominal Exam: no organomegaly, no pulsatile mass, distended, tenderness ( diffuse). negative: guarding, rebound - LYMPHATIC Lymphatic: no adenopathy - MUSCULOSKELETAL Back Exam: normal inspection, no CVA tenderness Extremity: normal range of motion, non-tender Peripheral Pulses: radial (R): 2+, radial (L): 2+ - SKIN Integumentary: normal color, normal turgor - NEUROLOGIC Neurologic: other (nonfocal) - PSYCHIATRIC Psych/Mental Status: anxious Progress - PLAN OF CARE/RESULTS Progress/Plan/Lab Results: Vital Signs - 8 hr 03/16/18 05:18 Temperature 97.5 F L Pulse Rate 101 H Respiratory Rate 18 Blood Pressure 118/88 O2 Sat by Pulse Oximetry 96 Orders Category Date Time Status Misc. [facility] Communication Order DIRECTED Care 03/16/18 05:27 Ordered CBC WITH ELECTRONIC DIFF [HEME] Stat Lab 03/16/18 05:28 Ordered CMP [COMPREHENSIVE METABOLIC PANEL] [CHEM] Stat Lab 03/16/18 05:29 Uncollected PT [PROTIME WITH INR] [COAG] Stat Lab 03/16/18 05:27 Uncollected TYPE & SCREEN [BBK] Stat Lab 03/16/18 05:28 Uncollected Pantoprazole [Protonix] Med 03/16/18 05:28 Once 40 mg IV NOW ONE Sodium Chloride 0.9% Med 03/16/18 05:28 Once 10 ml INJ NOW ONE EKG [EKG] Stat Ther 03/16/18 05:28 Ordered Result Diagrams: 03/16/18 05:40 03/16/18 05:40 - CHANGE OF SHIFT REPORT (ED Provider) Report Given and Care Transferred to:: Dr. Quezada Time of Transfer: 07:30 Items Pending: CT/MRI Results, Physician Consult/Arrival Departure - Departure Date of Disposition Decision: 03/16/18 Time of Disposition Decision: 10:25 DIAGNOSIS: Congestive rheumatic heart failure Dilantin toxicity Qualifiers: Encounter type: initial encounter Injury intent: accidental or unintentional Qualified Code(s): T42.0X1A - Poisoning by hydantoin derivatives, accidental ( unintentional), initial encounter Nausea and vomiting Qualifiers: Vomiting type: unspecified Vomiting Intractability: non-intractable Qualified Code(s): R11.2 - Nausea with vomiting, unspecified Disposition: ADMITTED INPATIENT 09 Certified Medical Emergency: Emergent Condition: Stable - Critical Care Note This patient required my direct & personal management of CC.: No Attestation - Physician/ SAFIA Attestation Patient care was provided by Advanced Practice Provider:: No The physician spent face to face time with patient:: Yes Advanced Practice Provider documentation review:: Supervising physician onsite and consulted in the evaluation and care of this patient. The physician did have a face to face encounter with the patient.
[2018-03-16] MEDS ORDERED: DILAUDID IV ONE (05:49)
[2018-03-16 05:50] LABS: BASO# 0.05 X1000 (0.0-0.2); BASO% 0.7 % (0.0-0.8); EOS# 0.21 X1000 (0.0-0.7); EOS% 2.9 % (0.0-10.0); HEMATOCRIT 41.1 % (37.0-47.0); HEMOGLOBIN 13.3 g/dL (12.0-16.0); IMM GRAN# 0.02 X1000 (0.0-0.04); IMM GRAN% 0.3 % (0.0-0.5); LYMPH# 1.46 X1000 (1.2-3.4); LYMPH% 20.4 % (20.5-51.1); MCH 28.1 PG (27-31); MCHC 32.4 g/dL (33-37); MCV 86.9 FL (81-99); MONO# 1.24 X1000 (0.11-0.59); MONO% 17.3 % (1.7-9.3); MPV 10.4 FL (7.4-10.4); NEUT# 4.17 X1000 (1.4-6.5); NEUT% 58.4 % (42.2-75.2); PLT 428 X1000 (130-400); RBC 4.73 XMIL (4.2-5.4); WBC 7.15 X1000 (4.8-10.8)
[2018-03-16 06:09] LABS: OCCULT BLOOD 1 NEGATIVE (NEGATIVE)
[2018-03-16 06:37] LABS: AGAP 11; ALBUMIN 3.6 g/dL (3.5-5.0); ALKALINE PHOSPHATASE 118 U/L (32-104); BUN 10 mg/dL (8-22); CALCIUM 8.7 mg/dL (8.8-10.2); CHLORIDE 99 mmol/L (98-107); COSMO 273; CREATININE 0.7 mg/dL (0.5-0.9); ESTIMATED GFR > 60; GLUCOSE 106 mg/dL (70-104); GOT 21 U/L (10-30); GPT 11 U/L (10-36); POTASSIUM 4.3 mmol/L (3.5-5.1); SODIUM 137 mmol/L (136-145); TCO2 26 mmol/L (25-35); TOTAL PROTEIN 7.9 g/dL (6.3-8.3)
[2018-03-16 06:48] LABS: UR AMPHETAMINES QUAL NONE DETECTED (NONE DETECT); UR BARBITUATES QUAL PRESUMPTIVE POSITIVE (NONE DETECT); UR BENZODIAZEPIN QUAL PRESUMPTIVE POSITIVE (NONE DETECT); UR CANNABINOIDS QUAL NONE DETECTED (NONE DETECT); UR COCAINE QUAL NONE DETECTED (NONE DETECT); UR METHADONE QUAL NONE DETECTED (NONE DETECT); UR METHAMPHETAMINE QUAL NONE DETECTED (NONE DETECT); UR OPIATES QUAL NONE DETECTED (NONE DETECT); UR OXYCODONE QUAL NONE DETECTED (NONE DETECT); UR PCP QUAL NONE DETECTED (NONE DETECT); UR PROPOXYPHENE QUAL NONE DETECTED (NONE DETECT); UR TCA QUAL NONE DETECTED (NONE DETECT)
[2018-03-16 06:55] LABS: INR 5.8; PROTIME 54.7 Seconds (11.0-16.0)
--- NOTE | 2018-03-16 07:11 | Diag Imaging Result Doc PS360 ---
FLAT/UPRIGHT ABD/1 VIEW CHEST - 03/16/2018 INDICATION: GI bleeding TECHNIQUE: COMPARISON: 11/06/2017 FINDINGS: Stable surgical changes to the heart and valve replacement. Heart size and pulmonary vascularity is normal. No infiltrates or edema. There is a nonobstructive bowel gas pattern. No free air or abnormal calcifications. IMPRESSION: Negative exam. Electronically signed by Paul Palacio 03/16/2018 7:09 AM
--- NOTE | 2018-03-16 08:11 | Diag Imaging Result Doc PS360 ---
CT ABD/PELVIS W/IV CONT ONLY - 03/16/2018 INDICATION: abdominal pain, n/v COMPARISON: 10/28/2017 FINDINGS: The lung bases are clear and the heart size is normal. Stable hemangioma in the liver dome. Otherwise all abdominal organs are normal. No bowel obstruction or inflammation. No free air or free fluid. Stable heterogeneously enhancing nodules throughout the myometrium, nonspecific but most likely representing uterine fibroids. Urinary bladder and rectum are normal. Bones are intact. IMPRESSION: No acute disease. This exam was performed using automated exposure control, adjustment of mA or kV according to patient size, and/or use of iterative reconstruction technique Electronically signed by Paul Palacio 03/16/2018 8:08 AM
--- NOTE | 2018-03-16 09:05 | EKG Report ---
Test Performed on : 03/16/2018 06:49:13 AM Test Reason : pain Blood Pressure : / mmHG Vent. Rate : 089 BPM Atrial Rate : 089 BPM P-R Int : 126 ms QRS Dur : 076 ms QT Int : 372 ms P-R-T Axes : 079 076 066 degrees QTc Int : 452 ms Normal sinus rhythm. Right atrial enlargement Borderline ECG When compared with ECG of 27-FEB-2018 10:15, (Unconfirmed) No significant change was found Unconfirmed Result
[2018-03-16] MEDS: PROTONIX IV SCH (12:28)
--- NOTE | 2018-03-16 12:29 | Diag Imaging Result Doc PS360 ---
CT HEAD W/O CONTRAST - 03/16/2018 INDICATION: head injury, elevated inr COMPARISON: 02/27/2018 FINDINGS: The ventricles and sulci are normal in size and contour. No intracranial mass or hemorrhage. No skull fracture. There is stable chronic left maxillary sinusitis. IMPRESSION: Sinusitis. No acute injury. This exam was performed using automated exposure control, adjustment of mA or kV according to patient size, and/or use of iterative reconstruction technique Electronically signed by Paul Palacio 03/16/2018 12:27 PM
[2018-03-16] MEDS: NORCO-10 PO PRN ×2 (14:52→21:09)
--- NOTE | 2018-03-16 15:56 | HISTORY AND PHYSICAL ---
CONTINUATION: Her CT of the abdomen and pelvis revealed no acute disease. Abdominal x-ray revealed a negative exam. ASSESSMENT AND PLAN: 1. Coffee-ground emesis. 2. Hypercoagulable state secondary to warfarin. 3. Elevated Dilantin level. 4. History of aortic valve replacement, mitral valve replacement and tricuspid repair in 2015. 5. Chronic anticoagulation. 6. Seizure disorder. 7. Heart failure. 8. History of gastric ulcer. 9. History of Crohn disease. 10. History of atrial fibrillation. PLAN: The patient will be admitted to the medical/surgical floor. She will be placed on telemetry. We will identify her home medications and continue as appropriate although we will hold warfarin and Dilantin. We will get daily levels and restart when appropriate. We will trend CBCs. We will occult any vomitus or stools. Will start Carafate as she has had a history of ulcers and she is hypercoagulable. She does have bruising noted under her eyes. She has hit her head recently while having a seizure and in the setting of this high INR will get a CT of the head. Further treatments pending hospital course. Dictated by TOPHER Gilliam for Hamzah Santiago MD This chart was documented by, TOPHER Gilliam and accurately reflects the services performed, treatment plan and medical decisions as attested by the providers signature Hamzah Santiago MD. cc: TOPHER Gilliam MD
--- NOTE | 2018-03-16 16:04 | HISTORY AND PHYSICAL ---
CHIEF COMPLAINT: Coffee ground emesis. HISTORY OF PRESENT ILLNESS: This is a 42-year-old female with a history of rheumatic fever, status post mitral valve and aortic valve replacement, as well as tricuspid repair in 2015, history of atrial fibrillation, peptic ulcers and Crohn's. She presents to the emergency room complaining of coffee ground emesis over a few days. She also states that she had some diarrhea with black stools. She did state that she has been taking Pepto-Bismol over the last week. Ms. Romero does carry a diagnosis for Crohn disease and she states she has had no recent flare. She does report having a seizure about 4 or 5 days' prior and she does have bruises under both eyes where she stated she hit her head on the refrigerator. PAST MEDICAL HISTORY: Aortic valve replacement, mitral valve replacement, tricuspid repair in 2015, congestive heart failure, seizure disorder, history of gastric ulcer, gastroesophageal reflux disease, history of atrial fibrillation, tobacco use and abuse, depression. PAST SURGICAL HISTORY: Atrial valve replacement, mitral valve replacement, tricuspid repair in 2015, bilateral tubal ligation, cholecystectomy, tonsillectomy. SOCIAL HISTORY: She denies alcohol or illicit drug use. She does smoke half a pack to a pack of cigarettes a day. ALLERGIES: Morphine, which causes a rash. HOME MEDICATIONS: Klonopin, Ambien, Coumadin, Compazine, Dilantin, [place] with doses to be verified by the nursing staff and then will continue once is appropriate. REVIEW OF SYSTEMS: Discussed with patient with pertinent positives stated in the HPI. She denied any syncope, any chest pain, palpitations, any night sweats, recent weight loss or weight gain, any hematuria, dysuria, shortness of breath, cough, fever or chills. PHYSICAL EXAMINATION: GENERAL: This is a 42-year-old female who is sitting up in bed in no distress. VITAL SIGNS: Blood pressure is 128/78, with a heart rate of 99, respirations 18, temperature is 98.2 oral, with room air sats 100%. EYES: Pupils are equal, round, react to light. EOMs are intact. Sclerae are anicteric. HEENT: Head is normocephalic, atraumatic. Mucous membranes are moist. NECK: Supple, with trachea midline. CARDIOVASCULAR: Mechanical prosthetic valve sounds are noted. She has a 1/6 murmur in the aortic area. No lower extremity edema. LUNGS: Clear, with no increased work of breathing noted. ABDOMEN: Soft, nontender, nondistended with bowel sounds in all 4 quadrants. NEUROLOGIC: She is alert oriented x 3. SKIN: Warm and dry. She does have bruises noted under both eyes. LABS: WBC is 7.1 with hemoglobin 13.3, hematocrit 41.1 and platelets of 428,000. INR is 5.80. Sodium is 137, potassium 4.3, BUN 10, creatinine 0.7, with a glucose of 106. Stool for occult blood is negative. Phenytoin level is 32.7. Urine drug screen is presumptive positive for barbiturates and benzodiazepine. DICTATION ENDS HERE Dictated by TOPHER Gilliam for Hamzah Santiago MD This chart was documented by, TOPHER Gilliam and accurately reflects the services performed, treatment plan and medical decisions as attested by the providers signature Hamzah Santiago MD. cc: TOPHER Gilliam MD
[2018-03-16] MEDS: CARAFATE PO SCH ×2 (16:28→21:09)
--- NOTE | 2018-03-16 18:54 | HISTORY AND PHYSICAL ---
ADDENDUM: Patient seen and examined by myself. Full note dictated and discussed with nurse practitioner. Patient presented to the hospital with nausea, vomiting and abdominal pain. She is noted to have an elevated Dilantin level. She has a significant coronary history with mechanical valve replacement due to I believe rheumatoid, rheumatic fever. She has a history of COPD, fibromyalgia and seizure disorder, as well as atrial fibrillation. She has been on Coumadin and notes that she was coughing up coffee-ground type emesis. Her INR is 5.4. We will admit her to the hospital. Thankfully, her hemoglobin and hematocrit is stable. We will follow. We will not reverse her Coumadin as at this point she is no longer vomiting and she needs to remain anticoagulated, if possible. However, should the bleeding started again, she certainly will require reversal at that point. cc: Hazmah Santiago MD
[2018-03-16] MEDS ORDERED: COUMADIN PO SCH (21:00)
[2018-03-16] MEDS: KLONOPIN PO PRN (21:09)
[2018-03-16] MEDS ORDERED: SODIUM CHLORIDE 0.9% 10 ML ONE (23:21)
[2018-03-17] MEDS: PROTONIX IV SCH ×3 (00:23→21:12)
[2018-03-17] MEDS: NORCO-10 PO PRN ×3 (04:54→21:14)
[2018-03-17 06:50] LABS: HEMATOCRIT 37.9 % (37.0-47.0); HEMOGLOBIN 11.8 g/dL (12.0-16.0); MCH 27.1 PG (27-31); MCHC 31.1 g/dL (33-37); MCV 87.1 FL (81-99); MPV 10.6 FL (7.4-10.4); RBC 4.35 XMIL (4.2-5.4); RDW 16.9 % (11.5-14.5); WBC 5.1 X1000 (4.8-10.8)
[2018-03-17 08:19] LABS: INR 2.5; PROTIME 28.2 Seconds (11.0-16.0)
[2018-03-17] MEDS: CARAFATE PO SCH ×4 (08:55→21:11)
[2018-03-17] MEDS: LOPRESSOR PO SCH (08:55)
--- NOTE | 2018-03-17 17:13 | PROGRESS NOTE ---
DATE: 03/17/2018 SUBJECTIVE: She has not had further bleeding, but she has dropped her hemoglobin and hematocrit a little bit. She initially was constipated, then she took magnesium citrate, started throwing up, she says bright red blood, and then she passed melena, again that is overall improved. OBJECTIVE: Vital Signs: Blood pressure 117/68, heart rate of 83, respiratory rate 18, temperature 97.9 degrees, and 100% on room air. Cardiovascular: Regular rate and rhythm. Pulmonary: Bilateral breath sounds. Clear to auscultation. Gastrointestinal: Soft, nontender, nondistended. Bowel sounds are positive. LABORATORY DATA: Hemoglobin and hematocrit have dropped a bit to 11 and 37 from 13 and 41. INR is down to 2.5 from 5.8. Phenytoin is down from 32.7 and 24.6. PROBLEM LIST: 1. Coffee-grounds emesis, gastrointestinal bleed. She is heme negative, but she has had a drop in her hemoglobin and hematocrit and clearly had a risk for bleeding with coagulopathy. I think it would be better to do endoscopy while she is inpatient since she will have to come off her Coumadin very transiently before it being reinstituted, and she did have evidence of significant bleed and is at risk for comorbidities doing this as an outpatient. 2. Mechanical valve. Again, goal INR will be 2.5 to 3.5. It is 2.5 today. I have not given her further Coumadin anticipating we could possibly do instrumentation tomorrow. 3. Elevated Dilantin level with possible toxicity related constipation, altered mentation. Her levels are improved. Today she is better. We will monitor her levels again tomorrow and follow. 4. Hypertension is currently stable. DISPOSITION: We are in the process of trying to transfer her to [facility] for a gastrointestinal evaluation, possibly consider neurological evaluation with her Dilantin level being elevated, but I will leave that to the primary team tomorrow for evaluation. cc: Axel Crisostomo MD
[2018-03-17] MEDS: NS 1,000 ML IV SCH (17:18)
[2018-03-17] MEDS: KLONOPIN PO PRN ×2 (17:19→23:00)
[2018-03-17] MEDS: SODIUM CHLORIDE 0.9% INJ PRN (21:11)
[2018-03-18] MEDS: PROTONIX IV SCH ×3 (02:06→22:35)
[2018-03-18] MEDS: NS 1,000 ML IV SCH ×3 (03:00→22:36)
[2018-03-18] MEDS: CARAFATE PO SCH ×5 (06:27→22:35)
[2018-03-18] MEDS: NORCO-10 PO PRN ×2 (06:28→14:46)
[2018-03-18 06:37] LABS: INR 1.32; PROTIME 17.4 Seconds (11.0-16.0)
[2018-03-18 06:41] LABS: HEMATOCRIT 34.4 % (37.0-47.0); HEMOGLOBIN 10.7 g/dL (12.0-16.0); MCH 27.7 PG (27-31); MCHC 31.1 g/dL (33-37); MCV 89.1 FL (81-99); MPV 10.2 FL (7.4-10.4); RBC 3.86 XMIL (4.2-5.4); RDW 16.5 % (11.5-14.5); WBC 3.95 X1000 (4.8-10.8)
[2018-03-18 06:49] LABS: AGAP 9; BUN 7 mg/dL (8-22); CALCIUM 7.4 mg/dL (8.8-10.2); CHLORIDE 102 mmol/L (98-107); COSMO 275; CREATININE 0.6 mg/dL (0.5-0.9); ESTIMATED GFR > 60; GLUCOSE 92 mg/dL (70-104); POTASSIUM 3.7 mmol/L (3.5-5.1); SODIUM 139 mmol/L (136-145); TCO2 28 mmol/L (25-35)
[2018-03-18] MEDS: LOPRESSOR PO SCH (09:03)
[2018-03-18] MEDS: SODIUM CHLORIDE 0.9% INJ PRN ×2 (11:03→22:35)
--- NOTE | 2018-03-18 12:29 | CONSULTATION ---
DATE OF CONSULTATION: 03/18/2018 REASON FOR CONSULTATION: Coffee-ground emesis. HISTORY OF PRESENT ILLNESS: Pleasant 42-year-old lady on Coumadin for her artificial mitral and aortic valve replacements. She is on Coumadin and anticoagulated. She had some nausea, and she states she has spit up some coffee-grounds; however, the Gastroccult was negative the last time she did. No previous history of bleed. PAST MEDICAL HISTORY: 1. Aortic and mitral valve replacements. 2. Tricuspid repair. 3. CHF. 4. Seiizure. 5. History of gastric ulcer. 6. GERD. PAST SURGICAL HISTORY: Valve replacements, cholecystectomy and tonsillectomy. SOCIAL HISTORY: Does not drink or use drugs. She does smoke half a pack of cigarettes a day ALLERGIES: Morphine with rash. HOME MEDICATION: Klonopin, Ambien, Coumadin, Compazine, Dilantin, [place]. REVIEW OF SYSTEMS: Other than HPI, negative. PHYSICAL EXAMINATION: General: A young lady in no distress. Vital Signs: Blood pressure 128/78, heart rate 99, respiration 18, temperature 98.2 degrees. HEENT: No conjunctival pallor. Neck: Supple. Trachea midline. Heart: The patient has clicks from the artificial valves. Lungs: Clear. Abdomen: Soft, nontender. Neurological: Alert and oriented. LABORATORY: Hemoglobin 10.7 and hematocrit 34.4. Her PT today has come down to 17.4 with INR of 132. IMPRESSION: 1. History of coffee-ground emesis, which has resolved. 2. Hypercoagulable state, which is back to normal. 3. Dilantin level elevation; most likely the source of her nausea. 4. Valve replacement. 5. Seizure disorder. 6. Heart failure. 7. Gastric ulcers. 8. Questionable history of Crohn disease. The patient just had a regular lunch. She does not have any more nausea and vomiting. No signs of any bleeding. So, I recommend continue GI prophylaxis and we will see her as an outpatient. The patient is wanting to go home. Okay to discharge on PPI. Will see her as an outpatient. cc: Ciara Durán MD
[2018-03-18] MEDS ORDERED: ZOFRAN IV PRN (13:11)
[2018-03-18] MEDS ORDERED: LOVENOX 1 MG/KG SUBQ SCH (13:30)
--- NOTE | 2018-03-18 14:31 | PROGRESS NOTE ---
DATE: 03/18/2018 SUBJECTIVE: Patient reports feeling somewhat nauseated, but no more episodes of coffee-ground vomiting. She is not feeling lightheaded. OBJECTIVE: Vital Signs: Temperature 98.4 degrees, heart rate 95, respiratory 14, blood pressure 118/87, satting 96% on room air. General examination: This is a 42-year-old, female, lying in bed in no acute distress, looking older than her stated age. HEENT: Head is normocephalic, atraumatic. Neck: No JVD. No carotid bruits. No lymphadenopathy. No thyromegaly. Cardiovascular exam: S1, S2 heard. No murmurs, gallops or rubs. There was some metallic valve sound in the aortic and mitral area. Respiratory exam: Clear bilaterally to auscultation. No work of breathing or using accessory muscles. Abdomen: Soft , nontender to palpation. Bowel sounds present. No organomegaly. Extremities: No clubbing, cyanosis, or edema. Peripheral pulses present in both legs. Neurological exam: Patient is alert and oriented x3. Moves 4 extremities. LABORATORY DATA: White cell count. 3.95, hemoglobin 10.7, hematocrit 34.4, platelets 353. INR 1.32. BMP is normal with calcium 7.4. ASSESSMENT AND PLAN: 1. Gastrointestinal bleeding with coffee-ground emesis. At this point, patient has not had any more episodes. Of vomiting. Hemoglobin has dropped. It today: That is the reason why she has been transferred to here. GI doctor, evaluated this patient and considering that she is eating okay, that she is not complaining of any vomiting, no big drop in hemoglobin, she can be seen as an outpatient, and she can be discharged from his standpoint. 2. Mechanical aortic and mitral valve replacement. Patient's today INR is 1.3. Considering that she has a high risk of thrombosis, I will go ahead and bridge Coumadin. She is going to be started on Lovenox 1 mg/kg every 12 hours. Will provide warfarin 10 mg oral at night. I will keep checking INR daily until we reach target levels, in this case 2.5 to 3.5. 3. Elevated Dilantin level, resolved. 4. Hypertension. Blood pressure is under control with the same management. 5. Disposition: At this point, patient is going to stay here until INR reaches therapeutic levels, then she can be discharged. cc: Edison West MD [facility]
[2018-03-18] MEDS: LOVENOX SUBQ SCH (14:42)
[2018-03-18] MEDS: KLONOPIN PO PRN ×2 (14:46→22:40)
[2018-03-18] MEDS ORDERED: COUMADIN PO SCH (21:00)
[2018-03-19] MEDS: PROTONIX IV SCH ×2 (01:21→12:15)
[2018-03-19] MEDS: LOVENOX SUBQ SCH (01:32)
[2018-03-19 05:45] LABS: HEMATOCRIT 33.2 % (37.0-47.0); HEMOGLOBIN 10.5 g/dL (12.0-16.0); MCH 28.2 PG (27-31); MCHC 31.6 g/dL (33-37); MPV 9.8 FL (7.4-10.4); RBC 3.73 XMIL (4.2-5.4); RDW 16.5 % (11.5-14.5); WBC 4.59 X1000 (4.8-10.8)
[2018-03-19] MEDS: CARAFATE PO SCH ×2 (06:01→12:15)
[2018-03-19 06:13] LABS: INR 1.16; PROTIME 15.8 Seconds (11.0-16.0)
[2018-03-19] MEDS: LOPRESSOR PO SCH ×2 (07:44→11:56)
[2018-03-19] MEDS: KLONOPIN PO PRN (07:45)
[2018-03-19] MEDS: NORCO-10 PO PRN ×2 (07:52→13:44)
[2018-03-19] MEDS: NS 1,000 ML IV SCH (08:45)
[2018-03-19] MEDS: SODIUM CHLORIDE 0.9% INJ PRN (12:15)
[2018-03-19] MEDS ORDERED: COUMADIN PO ONE (12:35)
[2018-03-19 12:48] VITALS: BP 115/68
--- NOTE | 2018-03-20 18:51 | DISCHARGE SUMMARY ---
ADMISSION DATE: 03/16/2018 DISCHARGE DATE: 03/19/2018 DISCHARGE DIAGNOSES: 1. GI bleeding with coffee-grounds emesis. Stable. 2. History of aortic and mitral valve replacement in 2014. 3. Elevated Dilantin level, resolved. 4. Seizure disorder. 5. Heart failure. 6. History of Crohn disease. 7. History of atrial fibrillation. CONSULTATIONS: Dr. Durán from . PROCEDURES: 1. Abdomen and pelvis CT showed no acute disease. 2. Head CT showed sinusitis, but no acute injury. HOSPITAL COURSE: This is a 42-year-old female with history of rheumatic fever status post mitral and aortic valve replacement, as well as tricuspid repair and history of atrial fibrillation who presented to the emergency department complaining of coffee grounds emesis over a few days. The patient reports also some black stools as well, so she was admitted to the hospital. We know that she has history of Crohn disease. The patient was sent from [facility] here for further evaluation and treatment. Apparently, the hemoglobin has not changed too much, so has decided to evaluate this patient as an outpatient. Also, we decided to stop Coumadin and the INR went very low of 1.13. Considering he is a high risk of thrombosis, because these two mechanical [*] considering that this patient wanted to go home, I decided to provide Lovenox therapeutic doses and according to her weight is going to be 80 mg subcutaneous q.12 hours and her usual dose of warfarin is going to be restarted. She has been instructed to come to the hospital where she usually comes to have INR checked next Saturday and also Saturday and check with primary care doctor about the results. The patient is going to be discharged in stable condition. DISCHARGE PHYSICAL EXAMINATION: Vital Signs: Temperature 98.2, heart rate 69, respiratory rate 16, blood pressure 115/68, O2 sat 100% on room airl General: This is a 42-year-old female lying in bed in no acute distress. HEENT: Head is normocephalic, atraumatic. Neck: No JVD noted. No carotid bruits. No lymphadenopathy. Cardiovascular: S1, S2 heard. No murmurs, gallops or rubs. Regular rate and rhythm. Respiratory: Clear bilaterally to auscultation. No work of breathing or using accessory muscles. Abdomen: Soft, nontender to palpation. Bowel sounds present. No organomegaly. Extremities: No clubbing, cyanosis or edema. Peripheral pulses present. Neurologic: Patient is alert and oriented x 3. Moves all 4 extremities. DISCHARGE DISPOSITION: 1. Home to self-care. 2. Follow up with primary care physician in the next few days for followup for INR. LIST OF MEDICATIONS: 1. Lovenox 80 mg subcutaneous twice daily for 10 days. 2. Pantoprazole 40 mg 1 tablet p.o. daily. 3. Sucralfate 1 tablet p.o. q.6 hours. 4. Klonopin 1 mg 1 tablet p.o. b.i.d. 5. Metoprolol 25 mg 1 tablet p.o. daily. 6. [place] 10 mg 1 tablet p.o. every 3 times per day p.r.n. pain. 7. Warfarin 7.5 mg 1 tablet p.o. daily. 8. Phenytoin. The dose has been changed from 300 to 200 mg p.o. at bedtime and from 200 to 100 p.o. daily in a.m. TIME SPENT: Time spent discharging this patient 32 minutes. cc: Edison West MD
== END 2018-03-19 14:17 | disposition home or self-care (01) | DRG 813 ==
LOC: P.ED 05:07 → P.MEDSURG 05:07 → OBSVTOIN 12:27 → SUATTDRO 12:27 → 4N 03-17 22:37
PROVIDERS: ATTEND Internal Medicine
CPT/HCPCS: 70450; 74022; 74177; 80048; 80053; 80104; 80185; 80301; 80305; 82270; 85025; 85027; 85610; 86850; 86900; 86901; 93005; 94761; 96374; 96375; 96376; 99285; A9270; C9113; G0431; G0434; G0477; J1170; J1650; J2405; J7030; Q9967; S0164

== ENCOUNTER 2018-05-29 15:50 | Inpatient (IN) ==
[2018-05-29] MEDS ORDERED: AMBIEN PO ONE (17:04)
[2018-05-29] MEDS ORDERED: KLONOPIN PO ONE (17:04)
[2018-05-29 17:45] LABS: BASO# 0.07 X1000 (0.0-0.2); BASO% 0.8 % (0.0-0.8); EOS# 0.01 X1000 (0.0-0.7); EOS% 0.1 % (0.0-10.0); HEMATOCRIT 40.3 % (37.0-47.0); HEMOGLOBIN 12.8 g/dL (12.0-16.0); IMM GRAN# 0.02 X1000 (0.0-0.04); IMM GRAN% 0.2 % (0.0-0.5); LYMPH# 2.13 X1000 (1.2-3.4); MCH 26.5 PG (27-31); MCHC 31.8 g/dL (33-37); MCV 83.4 FL (81-99); MONO% 12.9 % (1.7-9.3); MPV 11.2 FL (7.4-10.4); NEUT# 5.84 X1000 (1.4-6.5); PLT 288 X1000 (130-400); RBC 4.83 XMIL (4.2-5.4); RDW 17.2 % (11.5-14.5); WBC 9.27 X1000 (4.8-10.8)
[2018-05-29 18:15] LABS: AGAP 20; ALKALINE PHOSPHATASE 117 U/L (32-104); BUN 7 mg/dL (8-22); CALCIUM 9.4 mg/dL (8.8-10.2); CHLORIDE 96 mmol/L (98-107); COSMO 275; CREATININE 0.6 mg/dL (0.5-0.9); ESTIMATED GFR > 60; GLUCOSE 96 mg/dL (70-104); GOT 49 U/L (10-30); GPT 33 U/L (10-36); POTASSIUM 3.8 mmol/L (3.5-5.1); SODIUM 139 mmol/L (136-145); TCO2 23 mmol/L (25-35)
[2018-05-29] MEDS ORDERED: KLONOPIN ONE (18:23)
[2018-05-29] MEDS ORDERED: AMBIEN ONE (18:23)
--- NOTE | 2018-05-29 18:46 | Diag Imaging Result Doc PS360 ---
EXAM: CHEST-2 VIEWS INDICATION: seizure TECHNIQUE: 2 views COMPARISON: 05/11/2018 FINDINGS: The lungs are grossly clear. There is no discrete pleural fluid collection or pneumothorax. There are median sternotomy wires and a prosthetic heart valve. The cardiomediastinal silhouette and central vasculature are grossly unremarkable, otherwise. IMPRESSION: Stable chest with no definite acute pathology. Electronically signed by Anmol Dunham 05/29/2018 6:43 PM
[2018-05-29 18:48] LABS: CK INDEX 1.2 (0.0-2.5); CK-MB 7.74 ng/mL (0.0-5.0)
[2018-05-29 19:03] LABS: UR AMPHETAMINES QUAL NONE DETECTED (NONE DETECT); UR BARBITUATES QUAL PRESUMPTIVE POSITIVE (NONE DETECT); UR BENZODIAZEPIN QUAL PRESUMPTIVE POSITIVE (NONE DETECT); UR CANNABINOIDS QUAL PRESUMPTIVE POSITIVE (NONE DETECT); UR COCAINE QUAL NONE DETECTED (NONE DETECT); UR METHADONE QUAL NONE DETECTED (NONE DETECT); UR METHAMPHETAMINE QUAL NONE DETECTED (NONE DETECT); UR OPIATES QUAL NONE DETECTED (NONE DETECT); UR OXYCODONE QUAL NONE DETECTED (NONE DETECT); UR PCP QUAL NONE DETECTED (NONE DETECT); UR PROPOXYPHENE QUAL NONE DETECTED (NONE DETECT); UR TCA QUAL NONE DETECTED (NONE DETECT)
[2018-05-29] MEDS ORDERED: NS 1,000 ML IV ONE (19:32)
[2018-05-29] MEDS ORDERED: ATIVAN PO ONE (19:33)
--- NOTE | 2018-05-29 19:37 | PROVIDER DOCUMENTATION ---
This chart was entered by June Matthew Scribe, acting as scribe for Mike Givens MD. HPI-Neurological Disorder - General Chief Complaint: Seizure Stated Complaint: SEIZURE Time Seen by Provider: 05/29/18 16:35 Source: patient, family Allergies/Adverse Reactions: Patient Allergies Allergy/AdvReac Type Severity Reaction Status Date / Time morphine Allergy RASH Verified 05/29/18 16:21 Home Medications: Home Medication List Medication Instructions Recorded Confirmed Last Taken Type Clonazepam [Klonopin] 1 mg PO BID #30 tablet 08/11/16 03/16/18 03/15/18 21:00 Rx Hydrocodone Bit/Acetaminophen 1 each PO TID #30 tablet 10/05/16 03/16/18 03/15/18 21:00 Rx [Hydrocodon-Acetaminophn 10-325] Metoprolol [Lopressor] 25 mg PO DAILY #30 tablet 10/05/16 03/16/18 03/15/18 09:00 Rx Warfarin [Coumadin] 7.5 mg PO QHS 03/16/18 03/16/18 03/15/18 09:00 History Enoxaparin [Lovenox] 1 syringe SUBQ Q12H #20 syringe 03/19/18 Unknown Rx Pantoprazole [Protonix] 40 mg PO DAILY@0700 #60 tab 03/19/18 Unknown Rx Phenytoin [Dilantin] 100 mg PO QAM #30 cap 03/19/18 03/16/18 03/15/18 Rx Phenytoin [Dilantin] 200 mg PO QHS #30 cap 03/19/18 03/16/18 03/15/18 Rx Sucralfate [Carafate] 1 tab PO AC + HS #120 tab 03/19/18 Unknown Rx Methocarbamol [Robaxin] 500 mg PO BID #20 tab 05/11/18 Unknown Rx - History of Present Illness-Neuro Nature of Presenting Problem: Patient is a 42 year old female who presents to the ED with an increase in seizures. Patient states she has a 3 year history of seizures that started after having open heart surgery. Patient states she was seen by Dr. Santana [address] Santana changed her seizure medications. Patient states she was on Dilantin 200 mg in the AM and 300 mg in the PM then Dr. Max changed the Dilantin dosage to 100 mg TID and added Trileptal 200 mg BID. Patient states she has had multiple seizures every days for 2 weeks. Patient also states she ran out of her Klonopin 9 days ago and stopped smoking synthetic marijuana 2 weeks ago. Patient states generalized body aches. Patient states last seizure was at 1600 today. Headache Location: reports: other (patient does not report headache) Severity: reports: mild Onset/Duration: reports: other (2 weeks) Timing: reports: still present, getting worse Context: reports: seizure activity Cognitive Baseline: alert, oriented x3 Gait Baseline: walks without assistance Associated Symptoms: reports: denies symptoms Similar Symptoms Previously?: Yes Recently seen or treated by another doctor?: Yes - Seizure First time to have a seizure?: No Witnessed seizure?: Yes How many seizure episodes?: 3 (today) Duration of episode? (mins): 5 Episode Frequency: frequent episodes Character of Seizure: reports: generalized shaking all over Post-ictal Symptoms: reports: confusion Review of Systems - Adult - REVIEW OF SYSTEMS - ADULT Constitutional: reports: no symptoms reported Eyes: reports: no symptoms reported Ears, Nose, Mouth & Throat: reports: no symptoms reported Cardiovascular: reports: no symptoms reported Respiratory: reports: no symptoms reported Gastrointestinal: reports: no symptoms reported Genitourinary: reports: no symptoms reported Musculoskeletal: reports: no symptoms reported Integumentary: reports: no symptoms reported Neurological: reports: seizure. denies: dizziness/vertigo, headache/migraines, numbness, syncope Psychiatric: reports: no symptoms reported Endocrine: reports: no symptoms reported Hematologic/Lymphatic: reports: no symptoms reported Allergic/Immunologic: reports: no symptoms reported All Other Systems: Reviewed and Negative Past History - Adult - PAST MEDICAL HISTORY-ADULT Review of Records: reports: Nursing Assessment Review, Medications Reviewed, Social history reviewed & non-contributory. Major Childhood Illnesses: reports: denies history Cardiovascular: reports: A-Fib, blood clots, CHF, HTN, heart valve problem (both heart valves replaced) Respiratory: reports: asthma, COPD Gastrointestinal: reports: GERD, ulcer Obstetrical/Gynecological: reports: denies history Genitourinary: reports: denies history Musculoskeletal: reports: fibromyalgia Neurological: reports: Seizures/Epilepsy Psychiatric: reports: denies history Endocrine/Immune: reports: denies history Other Conditions: reports: denies history - PRIOR SURGERIES/PROCEDURES Surgical/Procedure History: reports: EGD, colonoscopy, cholecystectomy, BTL, tonsillectomy, other (MVP replacement) - IMMUNIZATION STATUS Childhood Immunizations: See Nurse Assessment Flu Vaccine: See Nurse Assessment - FAMILY HISTORY Family History: reviewed, not pertinent - SOCIAL HISTORY Smoking: cigarettes, less than 1 pack/day Provider spent 3-5 mins advising pt. on dangers of tobacco.: Discussed manners to quit use, and f/u contacts for add'l counseling. 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 negative: abnormal speech, facial asymmetry, facial droop Coordination/Gait: normal finger to nose, normal gait, negative Romberg's sign Motor/Sensory: no motor deficit, no sensory deficit, no pronator drift Neurologic: grossly normal, no motor/sensory deficits Integumentary: normal color, normal turgor, warm/dry Psych/Mental Status: normal mood/affect, oriented x 3 - Glascow Coma Scale Best Eye Response: (4) open spontaneously Best Verbal Response: (5) oriented Best Motor Response: (6) obeys commands Total Glascow Score: 15 Progress - PLAN OF CARE/RESULTS Progress/Plan/Lab Results: Vital Signs - 8 hr 05/29/18 16:14 05/29/18 18:24 Temperature 98.9 F Pulse Rate 99 H 96 H Respiratory Rate 20 17 Blood Pressure 135/84 137/73 O2 Sat by Pulse Oximetry 99 98 Laboratory Results - last 24 hr 05/29/18 05/29/18 05/29/18 17:35 17:35 17:35 WBC 9.27 RBC 4.83 Hgb 12.8 Hct 40.3 MCV 83.4 MCH 26.5 L MCHC 31.8 L RDW Std Deviation 17.2 H Plt Count 288 MPV 11.2 H Immature Gran % (Auto) 0.2 Neut % (Auto) 63.0 Lymph % (Auto) 23.0 Mck[place] % (Auto) 12.9 H Eos % (Auto) 0.1 Baso % (Auto) 0.8 Immature Gran # (Auto) 0.02 Neut # (Auto) 5.84 Lymph # (Auto) 2.13 Mckinley # (Auto) 1.20 H Eos # (Auto) 0.01 Baso # (Auto) 0.07 Sodium Potassium Chloride Carbon Dioxide Anion Gap BUN Creatinine Estimated GFR/1.73 m2 BUN/Creatinine Ratio Glucose Calculated Osmolality Calcium Total Bilirubin AST ALT Alkaline Phosphatase Creatine Kinase 629 H Creatine Kinase Index 1.2 CK-MB (CK-2) 7.74 H Troponin T < 0.010 Total Protein Albumin Globulin Albumin/Globulin Ratio Urine Opiates Screen Ur Oxycodone Screen Urine Methadone Screen U Propoxyphene Qual Ur Barbituates Screen Ur Tricyclics Screen Ur Phencyclidine Scrn Ur Amphetamines Screen U Methamphetamines Scrn U Benzodiazepines Scrn Urine Cocaine Screen U Cannabinoids Screen Plasma/Serum Ethyl Alc 05/29/18 05/29/18 05/29/18 17:35 17:35 18:22 WBC RBC Hgb Hct MCV MCH MCHC RDW Std Deviation Plt Count MPV Immature Gran % (Auto) Neut % (Auto) Lymph % (Auto) Mck[place] % (Auto) Eos % (Auto) Baso % (Auto) Immature Gran # (Auto) Neut # (Auto) Lymph # (Auto) Mckinley # (Auto) Eos # (Auto) Baso # (Auto) Sodium 139 Potassium 3.8 Chloride 96 L Carbon Dioxide 23 L Anion Gap 20 BUN 7 L Creatinine 0.6 Estimated GFR/1.73 m2 > 60 BUN/Creatinine Ratio 12 Glucose 96 Calculated Osmolality 275 Calcium 9.4 Total Bilirubin 1.20 H AST 49 H ALT 33 Alkaline Phosphatase 117 H Creatine Kinase Creatine Kinase Index CK-MB (CK-2) Troponin T Total Protein 9.0 H Albumin 5.0 Globulin 4.0 Albumin/Globulin Ratio 1.0 Urine Opiates Screen NONE DETECTED Ur Oxycodone Screen NONE DETECTED Urine Methadone Screen NONE DETECTED U Propoxyphene Qual NONE DETECTED Ur Barbituates Screen PRESUMPTIVE POSITIVE A Ur Tricyclics Screen NONE DETECTED Ur Phencyclidine Scrn NONE DETECTED Ur Amphetamines Screen NONE DETECTED U Methamphetamines Scrn NONE DETECTED U Benzodiazepines Scrn PRESUMPTIVE POSITIVE A Urine Cocaine Screen NONE DETECTED U Cannabinoids Screen PRESUMPTIVE POSITIVE A Plasma/Serum Ethyl Alc Orders Category Date Time Status Admit - [facility] Routine AdmDCTranf 05/29/18 19:31 Active Saline Loc DIRECTED Care 05/29/18 19:32 Active Vital Signs Order ARRIVAL TO ROOM Care 05/29/18 19:32 Active Heart Healthy Diet Diet 05/29/18 19:33 Active CHEST-2 VIEWS [RAD] Stat Exams 05/29/18 17:04 Completed ALCOHOL BLOOD Stat Lab 05/29/18 17:35 Completed CBC WITH ELECTRONIC DIFF [HEME] Stat Lab 05/29/18 17:35 Completed CBC WITH ELECTRONIC DIFF [HEME] Stat Lab 05/30/18 08:35 Uncollected CK PROFILE [SP CHEM] Stat Lab 05/29/18 17:35 Completed CK PROFILE [SP CHEM] Stat Lab 05/30/18 08:36 Ordered COMPREHENSIVE METABOLIC PANEL [CHEM] Stat Lab 05/29/18 17:35 Completed COMPREHENSIVE METABOLIC PANEL [CHEM] Stat Lab 05/30/18 08:36 Uncollected KEPPRA [WREN] Stat Lab 05/29/18 17:35 Received TROPONIN T Stat Lab 05/29/18 17:35 Completed URINE DRUG SCREEN PL Stat Lab 05/29/18 18:22 Completed 0.9% Sodium Chloride Inj [Ns] 1,000 ml Med 05/29/18 19:32 Active IV 75 mls/hr Clonazepam [Klonopin] Med 05/29/18 18:23 Discontinued 2 mg .ROUTE .STK-MED ONE Clonazepam [Klonopin] Med 05/29/18 17:04 Discontinued 2 mg PO NOW ONE Lorazepam [Ativan] Med 05/29/18 19:33 Ordered 2 mg PO NOW PRN Zolpidem [Ambien] Med 05/29/18 18:23 Discontinued 10 mg .ROUTE .STK-MED ONE Zolpidem [Ambien] Med 05/29/18 17:04 Discontinued 10 mg PO NOW ONE Oxygen Device Routine Oth 05/29/18 19:33 Completed EKG [EKG] Stat Ther 05/29/18 17:04 Ordered Transfer/Admit Order [TRANSFER] Routine Transfer 05/29/18 19:30 Ordered A/P seizures. Pt had stopped benzo 9 days ago, but is positive on UDS??. Using s pice synthetic Marijuana stopped 9 days ago. Not clear why increase of seizures, but Rx dosage was decreased in past 2 weeks. will admit for observation. Result Diagrams: 05/29/18 17:35 05/29/18 17:35 - XRAY 1 XRAY Study: Chest Impression: Normal ([facility] [address], [address], [place] [address] Department of Imaging Patient: LLOYD FERNANDEZ Date: 05/29/18MR#: [id number] : 1975ADM Status: REG [facility]#: [id number] Age/Sex: 42/FRoom/Bed: Loc: P.ED Ordering Physician: Mike Givens MD Family Physician: Je Matos MD Reason for Procedure: seizure Signed EXAM: CHEST-2 VIEWS INDICATION: seizure TECHNIQUE: 2 views COMPARISON: 05/11/2018 FINDINGS: The lungs are grossly clear. There is no discrete pleural fluid collection or pneumothorax. There are median sternotomy wires and a prosthetic heart valve. The cardiomediastinal silhouette and central vasculature are grossly unremarkable, otherwise. IMPRESSION: Stable chest with no definite acute pathology. Electronically signed by Anmol Dunham 05/29/2018 6:43 PM 05/29/181842 Interpreting Physician: Anmol Dunham MD Dictated Date/Time: 05/29/181842 cc: Mike Givens MD; Je Matos MD) - CONSULTS/PCP/HOSPITALIST Notification #1 *Consult/PCP/Hospitalist*: Dr. Lino Time Discussed: 17:01 Reason/Comments: Dr. Givens consulted with Dr. Lino about patient. Consult Disposition: Admit Departure - Departure Date of Disposition Decision: 05/29/18 Time of Disposition Decision: 19:37 DIAGNOSIS: Seizure Disposition: ADMITTED INPATIENT 09 Certified Medical Emergency: Emergent Condition: Stable Additional Freetext Instructions: We have examined and treated you today on an emergency basis only. This was not a substitute for, or an effort to provide, complete medical care. In most cases, you must let your doctor check you again. Tell your doctor about any new or lasting problems. We cannot recognize and treat all injuries or illnesses in one Emergency Department visit. If you had special tests, such as X-rays or CT scans, will be reviewed by radiologist and will call you if there are any new suggestions Follow up with primary care provider in 1 to 2 days if no improvement. If you do not have a primary care provider, you need to choose one as soon as possible. Take medicines as prescribed. Monitor for any side effects or adverse events from medications. If any side effect, adverse event or rash develops, or if you suspect any other adverse reaction to the medication, then discontinue the medication immediately and contact clinic /PCP or go to the nearest ER. Narcotic meds / sedative meds instruction - patent advised not to drive, operate any machinery or go into water after taking meds as it may impair mental ability to react to the situation in an appropriate manner. Continue other current medicines. Follow up with PCP within 24-48 hours, or sooner if symptoms worsen or fail to improve. Patient / guardian verbalizes understanding of treatment plan, medication, and side effects and agrees with treatment plan. Patient leaves ER in stable condition and ambulatory state. Return to ER as needed. Discharge instructions reviewed verbally and given to patient in written form. Follow up with primary care provider. Referrals and Follow-Ups: Je Matos MD [Primary Care Provider] - - Critical Care Note This patient required my direct & personal management of CC.: No Attestation - Physician/ SAFIA Attestation Patient care was provided by Advanced Practice Provider:: No The physician spent face to face time with patient:: Yes Advanced Practice Provider documentation review:: Supervising physician onsite and consulted in the evaluation and care of this patient. The physician did have a face to face encounter with the patient. This chart was documented by the indicated scribe, (June Matthew Scribe) and accurately reflects the services I performed and decisions made by me, Mike Givens MD, as attested by the provider's signature.
[2018-05-30] MEDS ORDERED: ATIVAN PO ONE (04:15)
[2018-05-30] MEDS ORDERED: AMBIEN PO PRN (07:14)
[2018-05-30] MEDS ORDERED: KLONOPIN PO PRN (07:14)
[2018-05-30] MEDS ORDERED: NICODERM PATCH TD PRN (07:22)
[2018-05-30] MEDS ORDERED: DILANTIN PO SCH ×2 (09:00→21:00)
[2018-05-30] MEDS ORDERED: TRILEPTAL PO SCH (09:00)
[2018-05-30 09:25] LABS: BASO# 0.05 X1000 (0.0-0.2); BASO% 1.1 % (0.0-0.8); EOS# 0.02 X1000 (0.0-0.7); EOS% 0.5 % (0.0-10.0); IMM GRAN# 0.01 X1000 (0.0-0.04); IMM GRAN% 0.2 % (0.0-0.5); LYMPH# 1.16 X1000 (1.2-3.4); LYMPH% 26.5 % (20.5-51.1); MCH 26.7 PG (27-31); MCHC 31.6 g/dL (33-37); MCV 84.6 FL (81-99); MONO# 0.61 X1000 (0.11-0.59); MONO% 13.9 % (1.7-9.3); MPV 11.1 FL (7.4-10.4); NEUT# 2.53 X1000 (1.4-6.5); NEUT% 57.8 % (42.2-75.2); PLT 236 X1000 (130-400); RBC 4.49 XMIL (4.2-5.4); RDW 17.1 % (11.5-14.5); WBC 4.38 X1000 (4.8-10.8)
[2018-05-30] MEDS: TRILEPTAL PO SCH ×2 (09:35→21:29)
[2018-05-30] MEDS: LOPRESSOR PO SCH (09:36)
[2018-05-30] MEDS: ROBAXIN PO SCH ×2 (09:36→21:29)
[2018-05-30] MEDS: CARAFATE PO SCH ×4 (09:36→21:29)
[2018-05-30 09:39] LABS: AGAP 15; ALKALINE PHOSPHATASE 94 U/L (32-104); BUN 6 mg/dL (8-22); CALCIUM 8.2 mg/dL (8.8-10.2); CHLORIDE 101 mmol/L (98-107); COSMO 276; CREATININE 0.6 mg/dL (0.5-0.9); ESTIMATED GFR > 60; GLUCOSE 89 mg/dL (70-104); GOT 32 U/L (10-30); GPT 25 U/L (10-36); POTASSIUM 3.4 mmol/L (3.5-5.1); SODIUM 140 mmol/L (136-145); TCO2 24 mmol/L (25-35); TOTAL PROTEIN 7.7 g/dL (6.3-8.3)
[2018-05-30 09:40] LABS: INR 1.61; PROTIME 19.9 Seconds (11.0-16.0)
[2018-05-30 09:44] LABS: CK PROFILE 271 U/L (24-173)
[2018-05-30] MEDS: NORCO-10 PO PRN ×2 (09:59→17:43)
[2018-05-30 10:19] LABS: CK INDEX 1.4 (0.0-2.5); CK-MB 3.84 ng/mL (0.0-5.0)
--- NOTE | 2018-05-30 11:03 | HISTORY AND PHYSICAL ---
PRIMARY CARE PHYSICIAN: Je Matos MD. NEUROLOGIST: Ambrosio Santana III, MD. CHIEF COMPLAINT: Seizures. HISTORY OF PRESENTING ILLNESS: This is a 42-year-old -[place] female, who presented to [facility] ER with complaints of seizures. States she has been having seizures for 3 years after she had a mitral valve replaced. States she saw her neurologist approximately 3 weeks ago and he changed her seizure medication. She had been on according to the patient Dilantin 200 mg in the morning, 300 in the p.m. and then it was changed to a dosage of 100 mg t.i.d. and he added a Trileptal taper. The patient states that she has had multiple seizures everyday for 2 weeks but this has not been witnessed by ER staff or Hospitalist. Also states that she ran out of her Klonopin 9 days ago that is prescribed by Dr. Matos, stated that he only gave her 20 tablets on her last prescription and he also told her he no longer be able to be the physician writing for her Klonopin. She also states that she stopped smoking synthetic marijuana 2 weeks ago. This morning, she does also state that she has had some depression, feeling hopeless, helpless, and suicidal without a specific plan. I did a phone consultation with Dr. Santana, who was able to provide some back history on this patient, and they had been making these adjustments to her medications as they felt the Dilantin was not working well so they were weaning off of it and placing her on Trileptal and increasing it. She has had apparently, according to Dr. Santana the family called his nurse practitioner stating that she had had some homicidal tendencies even as early as yesterday with possibly threatening family with a knife, so she has been admitted to the Medical unit and placed on one-to-one observation. PAST MEDICAL HISTORY: Atrial fibrillation, bilateral lower extremity DVT, seizures, CHF, hypertension, asthma, COPD, GERD, and fibromyalgia. PAST SURGICAL HISTORY: Mitral valve replacement, cholecystectomy, and bilateral tubal ligation. FAMILY HISTORY: Reviewed and noncontributory. SOCIAL HISTORY: She is smokes a half a pack of cigarettes and has done so for the past 10 years. She denied any alcohol use. States that used synthetic marijuana but quit 2 weeks ago. I asked her about regular marijuana use, she denied using regular marijuana, but her urine drug screen was positive for cannabinoids. ALLERGIES: Morphine. HOME MEDICATIONS: She was taking Klonopin 1 mg p.o. daily p.r.n., [place] 10 1 p.o. t.i.d. p.r.n., Robaxin 500 mg p.o. b.i.d., Lopressor 25 mg p.o. daily, oxcarbazepine 600 mg p.o. b.i.d, Protonix 40 mg p.o. daily, Dilantin 100 mg q.a.m. and 200 mg at bedtime, Carafate 1 g p.o. a.c. and at bedtime, Coumadin 7.5 mg p.o. at bedtime, and zolpidem 10 mg p.o. at bedtime. LABORATORY DATA: Showed a white blood cell count of 9.27, hemoglobin 12.8, hematocrit 40.3, platelets 288. Sodium 139, potassium 3.8, chloride 96, CO2 23, BUN of 7, creatinine 0.6, glucose 96, total bilirubin of 1.20, AST 49, ALT 33. Creatine kinase was 629 with a CK- MB of 7.74 but a negative troponin of less than 0.010. Urine drug screen was presumptive positive for barbiturates, benzodiazepines, and cannabinoids. Serum plasma alcohol level showed none detected. Chest x-ray showed a stable chest with no definite acute pathology. REVIEW OF SYSTEMS: She denied any fever, chills, blurred vision, dizziness, chest pain, coughing, shortness of breath. She states she has had seizure activity daily for the past 2 weeks, again this has not been witnessed by any staff members. She also states she does not have a headache. She denied any chest pain, coughing, shortness of breath, abdominal pain, constipation, diarrhea, burning or hurting with urination. PHYSICAL EXAMINATION: VITAL SIGNS: On arrival, she had a temperature of 98.9, pulse 99, respirations 20, blood pressure 135/84, saturating 99% on room air. GENERAL: This is a 42-year-old -[place] female, who is sitting up in the bed and answers questions appropriately. HEEMNT: Normocephalic, atraumatic. Normal ENT inspection. Oropharynx and nares are clear. Eyes: Pupils are equal, round, and reactive to light and accommodation. Extraocular movements are intact. NECK: Normal inspection. Normal range of motion. LUNGS: Clear to auscultation bilaterally with equal lung expansion and chest wall movement. HEART: With regular rate and rhythm. No murmurs, rubs, or gallops. ABDOMEN: Soft, nontender, nondistended. Bowel sounds are present x4 quadrants. MUSCULOSKELETAL: She had 5/5 strength x4 extremities. NEUROLOGICAL: The cranial nerves II through XII are intact. ASSESSMENT: 1. Seizures. 2. Possible benzodiazepine withdrawal. 3. Depression with suicidal ideations without a plan and also some homicidal ideations towards family. 4. Marijuana abuse and synthetic marijuana abuse. 5. Tobacco abuse. 6. Mild rhabdomyolysis. PLAN: She was admitted to the Medical unit, placed on a healthy heart diet. She was placed on one-to-one observation with staff. I did have a phone consultation this morning with Dr. Santana and his recommendations were to discontinue her Dilantin, increase her Trileptal today to 900 mg p.o. b.i.d., and then tomorrow increase to 1200 mg p.o. b.i.d., and then will continue her other home medications as previously identified. She has been receiving normal saline at 75 mL/hour, and we are going to recheck this morning a CBC, CK profile, CMP, and a prothrombin time with INR. If all of these are stable, then we will most likely consult [facility] later this afternoon for possible psychiatric management, and further orders after seen by attending. Dictated by TOPHER Chatman for Atilio Urias MD Patient seen and examined by me face to face, all the laboratory, images and vitals were reviewed, patient presented with seizures yesterday, normally she has 2 to 3 episodes of seizures during the week, but now as per the patient is happening multiple times a day and every day, as per the patient she has been using benzodiazepines for at least 15 years, but recently she ran out of the medication, apparently she did not receive the amount that she usually takes, and also she has been using syntectic marihuana to sleep better, apparently she stop doing that a few days ago, we contacted Dr Estrella, and we will follow his recommendations, in the other hand this patient has been having suicidal ideation, she has been thinking about taking the bottle of her seizure medication an just go to sleep and do not wake up, once she is medically stable we will contact psychiatry department for evaluation, I agree with the rest of the NUCLEAR LICENSING ENGINEER's assessment and plan, Atilio Glass MD cc: TOPHER Chatman MD Moses Awoniyi, MD Eston G. Norwood III, MD MTDD
[2018-05-30] MEDS ORDERED: KLOR-CON PO ONE (12:03)
[2018-05-30] MEDS ORDERED: COUMADIN PO SCH (21:00)
[2018-05-31] MEDS: CARAFATE PO SCH ×2 (06:43→11:58)
[2018-05-31 06:58] LABS: BASO# 0.05 X1000 (0.0-0.2); EOS% 1.9 % (0.0-10.0); HEMATOCRIT 37.7 % (37.0-47.0); HEMOGLOBIN 11.8 g/dL (12.0-16.0); IMM GRAN# 0.01 X1000 (0.0-0.04); IMM GRAN% 0.2 % (0.0-0.5); LYMPH# 1.47 X1000 (1.2-3.4); LYMPH% 28.1 % (20.5-51.1); MCH 26.7 PG (27-31); MCHC 31.3 g/dL (33-37); MCV 85.3 FL (81-99); MONO# 0.67 X1000 (0.11-0.59); MONO% 12.8 % (1.7-9.3); MPV 11.4 FL (7.4-10.4); NEUT# 2.93 X1000 (1.4-6.5); PLT 258 X1000 (130-400); RBC 4.42 XMIL (4.2-5.4); WBC 5.23 X1000 (4.8-10.8)
[2018-05-31] MEDS ORDERED: PROTONIX PO SCH (07:00)
[2018-05-31 07:25] LABS: AGAP 13; ALBUMIN 3.6 g/dL (3.5-5.0); ALKALINE PHOSPHATASE 86 U/L (32-104); BUN 9 mg/dL (8-22); CALCIUM 8.2 mg/dL (8.8-10.2); CHLORIDE 106 mmol/L (98-107); CK PROFILE 132 U/L (24-173); COSMO 278; CREATININE 0.6 mg/dL (0.5-0.9); ESTIMATED GFR > 60; GLUCOSE 96 mg/dL (70-104); GOT 23 U/L (10-30); GPT 17 U/L (10-36); POTASSIUM 4.3 mmol/L (3.5-5.1); SODIUM 140 mmol/L (136-145); TCO2 22 mmol/L (25-35); TOTAL PROTEIN 7.1 g/dL (6.3-8.3)
[2018-05-31] MEDS: ROBAXIN PO SCH (08:23)
[2018-05-31] MEDS: LOPRESSOR PO SCH (08:23)
[2018-05-31] MEDS ORDERED: TRILEPTAL PO SCH (09:00)
[2018-05-31 11:48] VITALS: BP 115/60
--- NOTE | 2018-05-31 14:57 | DISCHARGE SUMMARY ---
ADMISSION DATE: 05/29/2018 DISCHARGE DATE: 05/31/2018 DISPOSITION: Home. FOLLOW-UP: Dr. Je Matos. INVASIVE PROCEDURE DONE: During this admission none. IMAGING STUDIES: Of significance, a chest x-ray did show stable chest, no acute pathology. ADMISSION DIAGNOSES: 1. Seizure. 2. Possible benzodiazepine withdrawal. 3. Depression. 4. Marijuana use. 5. Tobacco abuse. 6. Mild rhabdomyolysis. DIAGNOSES AT THE TIME OF DISCHARGE: 1. Seizure breakthrough, likely due to benzodiazepine withdrawal versus uncontrolled seizures. 2. Depression with suicidal ideation. 3. Recreational drug abuse. 4. Tobacco abuse. 5. Mild rhabdomyolysis on admission. 6. Clinical volume depletion. DISCHARGE MEDICATIONS: 1. Metoprolol 25 mg daily. 2. Coumadin 7.5 p.o. at bedtime. 3. Pantoprazole 40 mg daily. 4. Carafate. 5. Dilantin 200 p.o. at bedtime. 6. Dilantin 100 mg q.a.m. 7. Carbamazepine 1200 b.i.d. 8. Klonopin 1 mg daily. PRESENTING COMPLAINT: Seizures. HISTORY OF PRESENTING COMPLAINT: Ms. Romero is a 42-year-old female with a history of atrial fibrillation, bilateral lower extremity DVT on chronic anticoagulation with Coumadin, also seizures, hypertension, fibromyalgia, came to the emergency department because of breakthrough seizures. The patient was evaluated and admitted to the medical floor. Her neurologist was contacted and Dr. Santana recommended to go up on the Trileptal. During the hospital course, Ms. Romero did not have any more seizures; however, because off threatening at home to kill family members, Cathy Reynolds was consulted. The patient was evaluated and was deemed to be safe for discharge. This morning Ms. Romero refers to be doing a lot better. No further seizures. Has been evaluated by Cathy Reynolds. She is therefore stable for discharge and she will follow up with her primary care doctor as well as with her neurologist, Dr. Santana. All the discharge instructions have been discussed with her and she voices understanding. Time spent for discharge is 36 minutes. cc: MD Je Jeffery MD Eston G. Norwood III, MD
== END 2018-05-31 13:10 | disposition home or self-care (01) | DRG 101 ==
LOC: P.ED 15:50 → SUATTDRO 22:02 → P.MEDSURG 22:02
PROVIDERS: ATTEND Internal Medicine
CPT/HCPCS: 71020; 71046; 80053; 80101; 80104; 80177; 80299; 80301; 80305; 80307; 80320; 80324; 80345; 80346; 80353; 80358; 80361; 80365; 82055; 82491; 82550; 82553; 83992; 84484; 85025; 85610; 93005; 94761; 96360; 96361; 99285; A9270; G0431; G0434; G0477; G0479; G0480; G6040; J7030